=== PATIENT | female | born 1955 | race Caucasian/White ===

== ENCOUNTER 2024-11-04 07:41 | Inpatient (IN) | payer MEDICARE, SELFPAY ==
[2024-11-04] VITALS (9 sets, daily range): BP systolic 95–127; BP diastolic 65–92; PULSE 69–105; RESP 14–20; TEMP 36.6–37.4; O2SAT 94–98; BMI 14.3; BMI 14.6; BMI 14.7
--- NOTE | 2024-11-04 08:12 | CRLHL7_ITS ---
For Patients: As a result of the 21st Century Cures Act, medical imaging exams and procedure reports are released immediately into your electronic medical record. You may view this report before your referring provider. If you have questions, please contact your health care provider. INDICATION: ABD PAIN, HX SBO. (Sic) No additional clinical history is given. COMPARISON: None available. TECHNIQUE: CT of the abdomen and pelvis with 43 cc of Isovue 370 intravenous contrast. Please note that all CT scans at this facility use dose modulation, iterative reconstruction, and/or weight-based dosing when appropriate to reduce radiation dose to as low as reasonably achievable. FINDINGS: ABDOMEN Liver: Normal contour and attenuation. No significant focal lesion. Two small to characterize low-attenuation finding in the anterior aspect of the superior right hepatic lobe (2; 12) statistically likely to represent a cyst for which no routine imaging surveillance as indicated in the absence of an established history of malignancy and without significant underlying liver disease. No intrahepatic biliary ductal dilatation. Patent portal veins. Patent hepatic veins. Gallbladder: Nonspecific gallbladder distention which could be due to a fasting state. No pericholecystic inflammatory changes. Normal common duct caliber. Pancreas: Normal contour and attenuation. No peripancreatic inflammatory changes. No significant focal lesion. Normal main duct caliber. Spleen: Not enlarged. No significant focal lesion. Patent splenic artery and vein. Adrenal Glands: Symmetrical adrenal glands. No significant focal lesion. Kidneys: Normal bilateral renal attenuation. No significant focal lesion. No nephrolith. No dilatation of the intrarenal collecting systems. No ureteral stone. Nondilated ureters. Patent renal arteries and veins. Gastrointestinal tract: Long segment severe dilatation of the small bowel with a transition point in the central abdomen suspicious for an internal hernia (2; 65). Surgical consultation is recommended. The gastrointestinal tract upstream from the dilated bowel is decompressed as is the colon. No associated intramural hemorrhage, wall thickening, mural hypoenhancement or hyperenhancement or pneumatosis intestinalis to indicate ischemia at this time. The appendix is not identified. Vascular: Chronic aortoiliac atherosclerotic mural calcification. Abdominal aorta and its major proximal branches including the celiac, superior mesenteric, inferior mesenteric, renal, and bilateral common iliac arteries are patent. Patent superior mesenteric vein. Peritoneal Cavity/Retroperitoneum: No ascites. No adenopathy. PELVIS No bladder lesion is identified. Hysterectomy. No significant ascites. No adenopathy. SKELETON AND BODY WALL No acute or significant incidental findings. LOWER THORAX Noncalcified lateral costophrenic angle left lower lobe solid nodule measuring 7 mm in mean diameter (series 3; image 30). Six-month follow-up chest CT is recommended per Fleischner society guidelines. Advanced emphysema. Increased lung volumes are consistent with chronic obstructive airways disease in the correct clinical setting. Incidental note is made of apparent focal thickening of the right posteromedial hemidiaphragm (series 2; image 20 and 5; 97). Differential diagnostic considerations include a small diaphragmatic eventration and noncalcified pleural plaque. This can be reassessed at the time of the recommended follow-up chest CT. IMPRESSION: 1. Long segment severe dilatation of the small bowel with a transition point in the central abdomen suspicious for an internal hernia (2; 65). Surgical consultation is recommended. The gastrointestinal tract upstream from the dilated bowel is decompressed, as is the colon. No associated intramural hemorrhage, wall thickening, mural hypoenhancement or hyperenhancement or pneumatosis intestinalis of the dilated small bowel to indicate ischemia at this time. Close clinical follow-up is recommended in this regard. 2. A follow-up chest CT is otherwise recommended in 6 months for an incidental 7 mm left lower lobe nodule per Fleischner society guidelines. 3. Nonspecific gallbladder distention which could be due to a fasting state in this patient with a small-bowel obstruction. No gallbladder wall thickening or pericholecystic inflammatory changes to indicate acute cholecystitis. Please note that all CT scans at this facility use dose modulation, iterative reconstruction, and/or weight-based dosing when appropriate to reduce radiation dose to as low as reasonably achievable. Dictated by Tre Engle MD @ 11/04/2024 9:42:56 AM (Electronically Signed)
--- NOTE | 2024-11-04 08:18 | ED.GENADULT ---
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 She has had a history of bowel obstruction. She has been told in the past when she has had about 6 of these and is hospitalized that she has not required surgery, they think it is from scar tissue from an abdominal hysterectomy that was remote. With her degree of COPD there been has not do surgery and also fear more scar tissue formation. She typically has bowel rest for 24-48 hours and gets better. She has noticed no bowel movement as mention she has been distended in her abdomen it has been mildly tender diffusely. She does not have fever chills rigors. Has not had shortness of breath or chest pain. She typically runs a lowish blood pressure that is normal for her by her report. She does take antihypertensive medications. She also reports she takes anxiety medications. She reports last eating about 3 days ago. She reports no other abdominal surgery. I have no records at this point will attempt to obtain them from [facility]. Addendum 8:38 a.m.: The patient has a past medical history of hypertension elevated coronary artery score, age-related osteoporosis, emphysema due to alpha-1 antitrypsin deficiency, tremor, depression with anxiety, nicotine dependence, major depressive disorder, COPD. The patient's medications have been listed as albuterol, alendronate, aspirin, fluoxetine, fluconazole to make Homer in EM vilanterol inhaler ibuprofen Xalatan Prinivil primidone rosuvastatin. Related Data Home Medications ?Medication ?Instructions ?Recorded ?Confirmed albuterol sulfate 90 mcg/actuation 2 puff inhalation Q4H PRN wheezing 11/04/24 11/04/24 aerosol inhaler alendronate 70 mg tablet 70 mg PO QWEEK 11/04/24 11/04/24 fluoxetine 10 mg capsule 10 mg PO DAILY 11/04/24 11/04/24 fluticasone fur. 100 mcg-umeclid 1 ea inhalation DAILY 11/04/24 11/04/24 62.5 mcg-vilant 25 mcg inhalat.powder (Trelegy Ellipta) latanoprost 0.005 % eye drops 1 drp ophthalmic (eye) HS 11/04/24 11/04/24 lisinopril 10 mg tablet 10 mg PO DAILY 11/04/24 11/04/24 rosuvastatin 10 mg tablet 10 mg PO QPM 11/04/24 11/04/24 Allergies Allergy/AdvReac Type Severity Reaction Status Date / Time No Known Drug Allergies Allergy Verified 11/04/24 08:12 Review of Systems Status of ROS: Reports: 6 or more systems reviewed and unremarkable except as noted in History and below [facility] Medical History Pulmonary cachexia due to COPD ?R64 - Cachexia (ICD-10) ?J44.9 - Chronic obstructive pulmonary disease, unspecified (ICD-10) Alpha 1-antitrypsin PiMS phenotype ?Z14.8 - Genetic carrier of other disease (ICD-10) Former heavy tobacco smoker ?Z87.891 - Personal history of nicotine dependence (ICD-10) Stage 4 very severe COPD by GOLD classification ?J44.9 - Chronic obstructive pulmonary disease, unspecified (ICD-10) CAD (coronary artery disease) ?I25.10 - Atherosclerotic heart disease of [place] coronary artery without angina pectoris (ICD-10) Depression ?F32.A - Depression, unspecified (ICD-10) Osteoporosis ?M81.0 - Age-related osteoporosis without current pathological fracture (ICD-10) Hyperlipidemia ?E78.5 - Hyperlipidemia, unspecified (ICD-10) Sarcopenia ?M62.84 - Sarcopenia (ICD-10) Surgical History S/P BOWEN-BSO ?Z90.710 - Acquired absence of both cervix and uterus (ICD-10) ?Z90.722 - Acquired absence of ovaries, bilateral (ICD-10) ?Z90.79 - Acquired absence of other genital organ(s) (ICD-10) History of back surgery ?Z98.890 - Other specified postprocedural states (ICD-10) H/O cone biopsy of cervix ?Z98.890 - Other specified postprocedural states (ICD-10) Social History What is your current living situation?: I presently have a place to live Problems where you live: mold and water leaks Problems where you live details: my son needs to get working on some things In the past 12 months, utilities in danger of being shut off: no In past 12 months, lack of transportation kept you from medical appts, meetings, work, or getting things needed for daily living: no In the past 12 mos, have been you worried that your food would run out before you had money to buy more?: never true In the past 12 mos, the food you bought just didn't last and you didn't have money to buy more?: never true Highest level of school completed/degree received: Associate degree: occupational, technical, vocational program Smoking Status: Former smoker Do you use any of these nicotine containing products: None How often do you have a drink containing alcohol: never AUDIT-C Alcohol total score: 0 Non-prescribed substance use: denies use Caffeine: Yes (4 cups a day) How often does anyone, including family, friends and others, physically hurt you: never How often does anyone, including family, friends and others, insult or talk down to you: never How often does anyone, including family, friends and others, threaten you with harm: never How often does anyone, including family, friends and others, scream or curse at you: never service: No Health Related Social Needs: Inadequate housing (Z59.1) Exam Narrative: Exam Narrative: Objective: Patient is a cachectic white female who has no scleral icterus, no facial asymmetry Vital signs look unremarkable Alert orient x3 pleasant No facial asymmetry, neck supple, heart rhythm regular 2/6 systolic murmur Lungs diminished air exchange Abdomen has a midline surgical scar, mildly distended, mildly diffusely tender but no peritonitis. Bowel sounds are slightly hyperactive. Extremities are no edema neurologic nonfocal. Patient has significant muscular atrophy in his very thin. Const: Vital Signs, click to edit/add: Vital Signs - 24 hr 11/04/24 08:06 11/04/24 10:30 11/04/24 11:00 Temperature 97.9 F Pulse Rate [Left P ulse Oximeter] 105 H 89 88 Pulse Rate [Left R adial] Respiratory Rate 18 18 18 Blood Pressure [Le ft Arm] Blood Pressure [Ri ght Upper Arm] 95/65 109/92 H 118/73 Pulse Oximetry 97 94 96 Oxygen Delivery Me thod Room Air Room Air Room Air 11/04/24 11:19 Temperature 98.9 F Pulse Rate [Left P ulse Oximeter] Pulse Rate [Left R adial] 90 Respiratory Rate 20 Blood Pressure [Le ft Arm] 127/85 Blood Pressure [Ri ght Upper Arm] Pulse Oximetry 98 Oxygen Delivery Me thod Room Air Course Vital Signs Vital signs: Initial Vital Signs Temperature 97.9 F 11/04/24 08:06 Temperature Source Temporal Artery Scan 11/04/24 08:06 Pulse Rate 105 H 11/04/24 08:06 Respiratory Rate 18 11/04/24 08:06 Blood Pressure 95/65 11/04/24 08:06 Blood Pressure Mean 75 11/04/24 08:06 Blood Pressure Position Sitting 11/04/24 08:06 Pulse Oximetry 97 11/04/24 08:06 Oxygen Delivery Method Room Air 11/04/24 08:06 Vital Signs Temperature 97.9 F 11/04/24 08:06 Pulse Rate 105 H 11/04/24 08:06 Respiratory Rate 18 11/04/24 08:06 Blood Pressure 95/65 11/04/24 08:06 Pulse Oximetry 97 11/04/24 08:06 Oxygen Delivery Method Room Air 11/04/24 08:06 Temperature 99 F 11/04/24 14:36 Pulse Rate 69 11/04/24 14:53 Respiratory Rate 16 11/04/24 14:36 Blood Pressure 111/68 11/04/24 14:36 Pulse Oximetry 96 11/04/24 14:36 Oxygen Delivery Method Room Air 11/04/24 14:36 Medications Administered Medications: Discontinued Medications Generic Name Dose Route Start Last Admin Trade Name Freq PRN Reason Stop Dose Admin Sodium Chloride 1,000 mls @ 6,000 mls/hr 11/04/24 08:15 11/04/24 09:30 0.9 % Sodium Chloride 1000 Ml IV 11/04/24 08:24 Infused .Q10M JAVIER Infusion Lactated Ringer's 1,000 mls @ 500 mls/hr 11/04/24 11:51 11/04/24 15:30 Lactated Ringers 1000 Ml IV 11/04/24 13:50 Infused .Q2H JAVIER Infusion Lactated Ringer's 1,000 mls @ 75 mls/hr 11/04/24 11:51 11/04/24 14:41 Lactated Ringers 1000 Ml IV 75 mls/hr .[id number] JAVIER Administration Morphine Sulfate 2 mg 11/04/24 08:12 11/04/24 08:33 Morphine 4 Mg/Ml Inj IVP 11/04/24 08:13 2 mg ONCE ONE Administration Morphine Sulfate 2 mg 11/04/24 11:51 11/04/24 15:41 Morphine 2 Mg/Ml Inj IVP 2 mg Q1H PRN Administration Pantoprazole Sodium 40 mg 11/04/24 11:51 11/04/24 12:40 Pantoprazole Sodium 40 Mg Inj IVP 11/04/24 11:52 40 mg ONCE ONE Administration Medical Decision Making MDM Narrative Medical decision making narrative: [age] year white female with significant COPD, anxiety, and hypertension history, new to our system, presents with a history of small-bowel obstruction and history of multiple hospitalizations for bowel obstruction. She denies history of any narcotic use at home. She has not had issues with that in the past. She does have a distended abdomen mildly tender. I think a CT scan with IV contrast would be appropriate as well as laboratory studies, IV fluid, IV pain medicine. Disposition pending her findings. Likely admission NPO status. Will attempt to get some old records. May need surgical consult as well. Differential would include intra-abdominal pathology such as diverticulitis, constipation, small-bowel obstruction, ileus. Addendum 10:12 a.m.: The patient has a long segment of small bowel obstruction with possible internal hernia. Dr. Gunn evaluated the patient's CT, and felt that operative interventions indicated given she has already had a trial of NPO for 3 days. She last reports she ate at least a day ago. She does have significant COPD. Her labs show an elevated CRP. She will be kept NPO. And surgical consult as well as probable operative intervention. Lab Data Labs: Lab Results 11/04/24 11/04/24 Range/Units 08:25 09:25 WBC 5.68 (4.50-11.00) K/uL RBC 4.67 (4.00-5.20) m/uL Hgb 14.6 (12.0-16.0) gm/dL Hct 44.9 (33.0-51.0) % MCV 96 (80-100) fL MCH 31 (26-34) pg MCHC 33 (32-36) gm/dL RDW Coeff of Sheeba 12.8 (11.5-15.5) % Plt Count 264 (140-440) K/uL Neut % (Auto) 74.9 H (42.0-72.0) % Lymph % (Auto) 11.6 L (20-44) % [place] % (Auto) 12.1 H (0.0-11.0) % Eos % (Auto) 0.2 (0.0-7.0) % Baso % (Auto) 0.5 (0.0-3.0) % Neut # (Auto) 4.30 (1.7-7.0) K/uL Lymph # (Auto) 0.70 L (0.90-2.90) K/uL [place] # (Auto) 0.70 (0.00-0.90) K/UL Eos # (Auto) 0.01 (0.00-0.50) K/uL Baso # (Auto) 0.03 (0.00-0.30) K/uL Abs Immat Gran (auto) 0.04 (0.00-0.30) K/uL Imm/Tot Granulo (auto) 0.7 % Sodium 131 L (135-149) mmol/L Potassium 4.4 (3.6-5.1) mmol/L Chloride 95 L (96-114) mmol/L Carbon Dioxide 25 (20-32) mmol/L Anion Gap 11 (7-15) mEq/L BUN 36 H (7-30) mg/dL Creatinine 1.1 (0.5-1.5) mg/dL Estimated Creat Clear 29.72 Estimated GFR 54 ml/min Glucose 115 (60-115) mg/dL Lactate 2.2 H (0.5-1.9) mmol/L Calcium 9.7 (8.4-10.6) mg/dL Total Bilirubin 0.7 (0.1-1.5) mg/dL Direct Bilirubin 0.2 (0.0-0.5) mg/dL AST 34 (12-35) U/L ALT 20 (4-35) U/L Alkaline Phosphatase 96 (40-150) U/L C-Reactive Protein 4.4 H (0.5-1.0) mg/dL NT-Pro-B Natriuret Pep 451 H (See Note) pg/mL Total Protein 7.5 (6.0-8.3) g/dL Albumin 4.5 (3.3-5.0) g/dL Amylase 59 (18-89) U/L Urine Color Yellow (Yellow) Urine Appearance Clear (Clear) Urine pH 6.5 (5.0-8.5) Ur Specific [place] 1.015 (1.000-1.030) Urine Protein 1+ A (Negative) Urine Glucose (UA) Negative (Negative) Urine Ketones 1+ A (Negative) Urine Blood Negative (Negative) Urine Nitrite Negative (Negative) Urine Bilirubin 1+ A (Negative) Urine Urobilinogen 0.2 (0.2-1.0) Ur Leukocyte Esterase Negative (Negative) Urine RBC 0-2 (0-2) Urine WBC 0-2 (0-5) Ur Squamous Epith Cells Few (None-Few) Other Sediment (None) Urine Bacteria None (None) Discharge Plan Discharge Clinical Impression: Abdominal pain, Complete obstruction of small intestine Patient Disposition: Admitted As Observation
[2024-11-04 08:30] LABS: Lactate* 2.2 mmol/L (0.5-1.9)
[2024-11-04] MEDS: MORPHINE 4 MG/ML INJ 2 MG IVP (08:33)
[2024-11-04 08:38] LABS: Hematocrit 44.9 % (33.0-51.0); Hemoglobin* 14.6 gm/dL (12.0-16.0); Immature Granulocytes Abs Auto 0.04 K/uL (0.00-0.30); Immature Granulocytes Pct Auto 0.7 %; Mean Corpuscular HGB Conc 33 gm/dL (32-36); Mean Corpuscular Hemoglobin 31 pg (26-34); Mean Corpuscular Volume 96 fL (80-100); RDW Coefficient of Variation % 12.8 % (11.5-15.5); Red Blood Count 4.67 m/uL (4.00-5.20); White Blood Count* 5.68 K/uL (4.50-11.00)
[2024-11-04 08:39] LABS: Lymphocytes Absolute Auto 0.70 K/uL (0.90-2.90); Slide Review Reflex No
--- OUTSIDE RECORDS SUMMARY | 2024-11-04 08:39 | XMS_ITS | Clinical Summary ---
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 12/02/2023 Active alendronate (FOSAMAX) 70 mg oral tablet Take 1 tablet (70 mg) by mouth every 7 (seven) days. 08/29/2023 Active FLUoxetine (PROZAC) 10 mg oral capsule Take 1 capsule (10 mg) by mouth Daily. 11/30/2023 Active TRELEGY ELLIPTA 100-62.5-25 mcg Inhl DsDv INHALE 1 PUFF BY MOUTH AT THE SAME TIME EVERY DAY Active lisinopriL (PRINIVIL) 10 mg oral tablet Take 1 tablet (10 mg) by mouth Daily. 08/29/2023 Active ibuprofen (ADVIL;MOTRIN) 200 mg oral tablet Take 1 tablet (200 mg) by mouth. Active latanoprost 0.005% (XALATAN) 0.005 % Opht Drop ophthalmic (EYE) solution INSTILL 1 DROP INTO BOTH EYES DAILY AT BEDTIME FOR 6 MONTHS 07/19/2024 Active primidone (MYSOLINE) 50 mg oral tabletIndicatio ns:Essential tremor Take 1 tab qhs for 7 days, then take 1 tab bid. 180 tablet 1 08/22/2024 Active Active Problems Problem Noted Date Diagnosed Date Tremors of nervous system 07/14/2016 Essential hypertension 06/02/2011 Essential tremor 02/06/2010 COPD (chronic obstructive pulmonary disease) 01/2010 Depression with anxiety 11/18/2009 Encounters Date Type Department Care Team Description 08/22/2024 10:30 AM CDT Office Visit [facility] - [address] [place] [address] Remy Kolb PA-C Essential tremor from Last 3 Months Immunizations Immunization Administration Dates Next Due Influenza Adjuvanted (Fluad Quadrivalent PF) 03/14/2023,04/06/2022,02/10/2021,2019 Influenza Adjuvanted (Fluad Trivalent PF) 02/23/2024 Influenza split virus (Fluzo ne Quadrivalent PF) 01/23/2019,01/20/2018,05/25/2017,2015,03/07/2015,02/28/2014 Influenza split virus (Fluzo ne Trivalent PF) 03/01/2011 Influenza split virus trivalent 02/29/20 13,02/08/2012,02/23/2010,2005,03/30/2005,02/10/2004,02/02/2002,1 05/07/2000,02/25/2000,02/19/1999, 998 Pfizer 12+ Yrs Bivalent COVI D Vaccine (monique cap) 04/12/2022 Pfizer 12+ Yrs Monovalent CO VID Vaccine (purple cap) 07/30/2020,07/09/2020 Pneumococcal PCV20 03/14/2023 Pneumococcal PPSV23 01/14/2020,02/10/2004 Td adult absorbed PF (2 Lf) 11/13/1997 Tdap 09/14/2017,08/28/2007 Social History Tobacco Use Types Packs/Day Years Used Date Smoking Tobacco: Former Cigarettes Smokeless Tobacco: Never Tobacco Cessation:Counseling Given: No Alcohol Use Standard Drinks/Week Comments Not Currently 0 (1 standard drink = 0.6 oz pur e alcohol) Comments Unknown Sex and Gender Information Value Date Recorded Sex Assigned at Not on file Legal Sex Female 7:09 PM CDT Gender Identity Not on file Sexual Orientation Not on file Last Filed Vital Signs Vital Sign Reading Time Taken Comments Blood Pressure - - Pulse - - Temperature - - Respiratory Rate 14 08/22/2024 11:05 AM CDT Oxygen Saturation - - Inhaled Oxygen Concentration - - Weight 38.6 kg (85 lb) 08/22/2024 11:05 AM CDT Height 165.1 cm (5' 5) 08/22/2024 11:05 AM CDT Body Mass Index 14.14 08/22/2024 11:05 AM CDT Plan of Treatment Health Maintenance Due Date Last Done Comments Colonoscopy 1955 Hepatitis C Screening 1955 Lipid Screening 1955 Depression Follow-Up (PHQ-9) 11/25/1955 Spirometry 05/27/1959 Yearly Review of HCD 2004 Zoster Vaccine (1 of 2) 2004 RSV Vaccines (1 - Risk 60-74 years 1-dose series) 2014 COVID-19 Vaccine ( season) 2023 04/12/2022, 07/30/2020, 07/09/2020 Osteoporosis Screening 11/15/2024 3, 02/13/2020, 08/11/2016, Additional history exists Medicare Wellness Visit 12/06/2024 12/07/19 24, 04/06/2022, 02/10/2021, Additional history exists Influenza Vaccine (#1) 2024 4, 03/14/2023, 04/06/2022, Additional history exists Mammogram Screening 08/25/2025 08/26/2023, 08/26/2023, 06/01/2022, Additional history exists Adult Tetanus Booster 09/15/2027 09/14/2017 , 08/28/2007, 11/13/1997 Pneumococcal 50+ Years Completed 3, 01/14/2020, 02/10/2004 Meningococcal B Vaccine Aged Out No l onger eligible based on patient's age to complete this topic Insurance [email or web address] Care Teams Core Laying Machine Operator Relationship Specialty [place] [address] [place] [address] PCP - General Family Medicine 02/29/24 Remy Kolb PA-C [address] [place] [address] Neurology 02/29/24
--- OUTSIDE RECORDS SUMMARY | 2024-11-04 08:39 | XMS_ITS | Clinical Summary ---
Author Organization [facility] Address [address] [place] [id number] Care Team Providers Care Heel Turner Name Role Phone Maral Alberto PA-C Primary Care Provider Allergies No known active allergies Medications FLUoxetine (PROZAC) 10 MG capsule Take 10 mg by mouth daily Active albuterol (PROAIR HFA/PROVENTIL HFA/VENTOLIN HFA) 108 (90 Base) MCG/ACT inhaler Inhale 2 puffs into the lungs every morning Active albuterol (PROAIR HFA/PROVENTIL HFA/VENTOLIN HFA) 108 (90 Base) MCG/ACT inhaler Inhale 2 puffs into the lungs daily as needed for shortness of breath Active Fluticasone-Umecl idin-Vilant (TRELEGY ELLIPTA) 100-62.5-25 MCG/ACT oral inhaler Inhale 1 puff into the lungs daily Active alendronate (FOSAMAX) 70 MG tablet Take 70 mg by mouth every 7 days Active multivitamin, therapeutic (THERA-VIT) TABS tablet Take 1 tablet by mouth at bedtime Active ibuprofen (ADVIL/MOTRIN) 200 MG tablet Take 200 mg by mouth daily as needed for pain Active azithromycin (ZITHROMAX) 250 MG tablet Take by mouth as needed Take when needed Active lisinopril (ZESTRIL) 10 MG tabletIndications :Primary hypertension Take 1 tablet (10 mg) by mouth daily 4 Active budesonide-formot alondra (SYMBICORT) 160-4.5 MCG/ACT InhalerIndication s:COPD exacerbation (H) Inhale 2 puffs into the lungs daily 4 Active predniSONE (DELTASONE) 20 MG tablet Take two tablets (= 40mg) each day for 5 (five) days 10 tablet 5 Active Active Problems Problem Noted Date Diagnosed Date Centrilobular emphysema 11/23/2023 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 11/23/2023 Essential hypertension 11/23/2023 Lung nodule 08/28/2020 Hypoxia 08/28/2020 COPD exacerbation 08/28/2020 SBO (small bowel obstruction) 10/20/2016 Small bowel obstruction 07/27/2015 Encounters Date Type Department Care Team Description 08/29/2024 12:56 PM CDT - 08/29/2024 4:23 PM CDT Emergency [facility] Emergency Dept [address] [place] [address] Leatha Jon MD Pleuritic chest pain; Dyspnea on exertion; Chronic obstructive pulmonary disease, unspecified COPD type (H); Pulmonary nodules Discharge Disposition: Home or Self Care 08/29/2024 Travel from Last 3 Months Social History Tobacco Use Types Packs/Day Years Used Date Smoking Tobacco: Every Day Cigarettes Adolescent Education Answer Date Record ed Getting School Help Needed Not on file 01/16 Comments No Sex and Gender Information Value Date Recorded Sex Assigned at Not on file Legal 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 Gender Identity Not on file Sexual Orientation Not on file Last Filed Vital Signs Vital Sign Reading Time Taken Comments Blood Pressure 113/82 08/29/2024 4:18 PM CDT Pulse 91 08/29/2024 4:18 PM CDT Temperature 37.1 C (98.7 F) 08/29/2024 4:18 PM CDT Respiratory Rate 16 08/29/2024 12:53 PM CDT Oxygen Saturation 97% 08/29/2024 4:18 PM CDT Inhaled Oxygen Concentration - - Weight 38.6 kg (85 lb) 08/29/2024 12:53 PM CDT Height 162.6 cm (5' 4) 08/29/2024 12:53 PM CDT Body Mass Index 14.59 08/29/2024 12:53 PM CDT Plan of Treatment Health Maintenance Due Date Last Done Comments ADVANCE CARE PLANNING 1955 ANNUAL REVIEW OF HM ORDERS 1955 COPD ACTION PLAN [address] COLONOGRAPHY 1955 FLEX SIG 1955 sDNA (Cologuard) 1955 HEPATITIS C SCREENING 1972 LIPID 1994 ZOSTER VACCINE (1 of 2) 2004 FIT 01/16/2009 01/17/2008 RSV VACCINE (1 - Risk 60-74 years 1-dose series) 2014 FALL RISK ASSESSMENT 11/25/2019 COLONOSCOPY 10/06/2023 10/05/2013, 12/01/2007 COLORECTAL CANCER SCREENING 10/06/2023 COVID-19 VACCINE ( season) 2023 07/30/2020 PHQ-2 (once per calendar year) 2024 MEDICARE ANNUAL WELLNESS VISIT 12/06/2024 12/07/2023, 08/29/2023, 04/06/2022, Additional history exists INFLUENZA VACCINE (#1) 2024 , 03/14/2023, 04/06/2022, Additional history exists MAMMO SCREENING 08/25/2025 08/26/2023, 08/09, 02/13/2020, Additional history exists BMP 08/29/2025 08/29/2024, 11/09, 11/20/2023, Additional history exists LUNG CANCER SCREENING 08/29/2025 08/29/2024 DIABETES SCREENING 08/30/2027 08/29/2024, 0 11/21/2023, 11/21/2023, Additional history exists DTAP/TDAP/TD VACCINE (3 - Td or Tdap) 09/15/2027 09/14/2017, 08/28/2007, 11/13/1997 DEXA 11/15/2037 11/15/2022 PNEUMOCOCCAL VACCINE 50+ YEARS Completed 03/14/2023, 01/14/2020, 02/10/2004 SPIROMETRY Completed 12/02/2023, 04/13, 05/10/2019 HPV VACCINE (No Doses Required) Completed MENINGITIS VACCINE Aged Out No longer eligible based on patient's age to complete this topic Procedures Procedure Name Priority Date/Time Associated Diagnosis Comments CT CHEST PULMONARY EMBOLISM W CONTRAST STAT 08/29/2024 3:07 PM CDT EKG 12-LEAD, TRACING ONLY STAT 08/29/2024 2:29 PM CDT CBC WITH PLATELETS & DIFFERENTIAL STAT 08/29/2024 1:19 PM CDT CBC WITH PLATELETS AND DIFFERENTIAL STAT 08/29/2024 1:19 PM CDT D DIMER QUANTITATIVE STAT 08/29/2024 1:19 PM CDT TROPONIN T, HIGH SENSITIVITY STAT 08/29/2024 1:19 PM CDT BASIC METABOLIC PANEL STAT 08/29/2024 1:19 PM CDT PULMONARY FUNCTION TEST - HIM SCAN 05/10/2019 12:[address]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 No pulmonary embolism. 2. Severe emphysema. 3. Unchanged probable scarring in the upper lobes posteriorly, as well as subcentimeter nodules bilaterally. Narrative 08/29/2024 3:21 PM CDT EXAM: CT CHEST PULMONARY EMBOLISM W CONTRAST LOCATION: [facility] DATE: 08/29/2024 INDICATION: chest pain, dyspnea COMPARISON: 08/01/2024 TECHNIQUE: CT chest pulmonary angiogram during arterial phase injection of IV contrast. Multiplanar reformats and MIP reconstructions were performed. Dose reduction techniques were used. CONTRAST: 41mL Isovue 370 FINDINGS: ANGIOGRAM CHEST: Pulmonary arteries are normal caliber and negative for pulmonary emboli. Thoracic aorta is negative for dissection. No CT evidence of right heart strain. LUNGS AND PLEURA: Severe upper lung predominant centrilobular emphysema with unchanged probable scarring in the upper lobes posteriorly. A few nodular opacities are also unchanged (e.g. ). No pleural effusion or pneumothorax. MEDIASTINUM/AXILLAE: Normal. CORONARY ARTERY CALCIFICATION: Mild. UPPER ABDOMEN: Normal. MUSCULOSKELETAL: Degenerative changes in the spine. Procedure Note Hakeem Alvarez MD - 08/29/2024 EXAM: CT CHEST PULMONARY EMBOLISM W CONTRAST LOCATION: [facility] DATE: 08/29/2024 INDICATION: chest pain, dyspnea COMPARISON: 08/01/2024 TECHNIQUE: CT chest pulmonary angiogram during arterial phase injection ofIV contrast. Multiplanar reformats and MIP reconstructions were performed.Dose reduction techniques were used. CONTRAST: 41mL Isovue 370 FINDINGS: ANGIOGRAM CHEST: Pulmonary arteries are normal caliber and negative forpulmonary emboli. Thoracic aorta is negative for dissection. No CTevidence of right heart strain. LUNGS AND PLEURA: Severe upper lung predominant centrilobular emphysemawith unchanged probable scarring in the upper lobes posteriorly. A fewnodular opacities are also unchanged (e.g. ). No pleural effusion orpneumothorax. MEDIASTINUM/AXILLAE: Normal. CORONARY ARTERY CALCIFICATION: Mild. UPPER ABDOMEN: Normal. MUSCULOSKELETAL: Degenerative changes in the spine. IMPRESSION: 1. No pulmonary embolism. 2. Severe emphysema. 3. Unchanged probable scarring in the upper lobes posteriorly, as well assubcentimeter nodules bilaterally. us Leatha Jon MD IMG CT ORDERABLES Final Result * EKG 12 lead (08/29/2024 2:29 PM CDT) Systolic Blood Pressure mmHg RADIOLOGY RESULTS Diastolic Blood Pressure mmHg RADIOLOGY RESULTS Ventricular Rate 105 BPM RAD IOLOGY RESULTS Atrial Rate 105 BPM RADIOLOG Y RESULTS IN Interval 126 ms RADIOLOG Y RESULTS QRS Duration 76 ms RADIOLO GY RESULTS QT 330 ms RADIOLOGY RESULTS QTc 436 ms RADIOLOGY RESULTS P [place] 90 degrees RADIOLOGY RESULTS R AXIS 88 degrees RADIOLOGY RESULTS T [place] 86 degrees RADIOLOGY RESULTS Interpretation ECG Sinus tachycardia Otherwise normal ECG When compared with ECG of 28-Aug-2020 17:45, No significant change was found Unconfirmed report - interpretation of this ECG is computer generated - see medical record for final interpretation Confirmed by - EMERGENCY ROOM, PHYSICIAN ([id number]), senior technical editor Ace Dudley ([id number]) on 08/29/2024 2:43:41 PM RADIOLOGY RESULTS 08/29/2024 2:29 PM CDT 08/29/2024 2:43 PM CDT us Leatha Jon MD ECG ORDERABLES Edited R esult - Final RADIOLOGY RESULTS * (ABNORMAL) CBC with platelets and differential (08/29/2024 1:19 PM CDT) WBC Count 12.0(H) 4.0 - 11.0 10e3/uL 08/29/2024 1:30 PM CDT [facility] RBC Count 4.35 3.80 - 5.20 10e6/uL 08/29/2024 1:30 PM CDT [facility] Hemoglobin 13.9 11.7 - 15.7 g/dL 08/29/2024 1:30 PM CDT [facility] Hematocrit 41.8 35.0 - 47.0 % 08/29/2024 1:30 PM CDT [facility] MCV 96 78 - 100 fL 08/29/2024 1:30 PM CDT [facility] MCH 32.0 26.5 - 33.0 pg 08/29/2024 1:30 PM CDT [facility] MCHC 33.3 31.5 - 36.5 g/dL 08/29/2024 1:30 PM CDT [facility] RDW 12.9 10.0 - 15.0 % 08/29/2024 1:30 PM CDT [facility] Platelet Count 256 150 - 450 10e3/uL 08/29/2024 1:30 PM CDT [facility] % Neutrophils 80 % 08/29/2024 1:30 PM CDT [facility] % Lymphocytes 10 % 08/29/2024 1:30 PM CDT [facility] % Monocytes 7 % 08/29/2024 1:30 PM CDT [facility] % Eosinophils 1 % 08/29/2024 1:30 PM CDT [facility] % Basophils 1 % 08/29/2024 1:30 PM CDT [facility] % Immature Granulocytes 1 % 08/29/2024 1:30 PM CDT [facility] NRBCs per 100 WBC 0 <1 /100 025 1:30 PM CDT [facility] Absolute Neutrophils 9.6(H) 1.6 - 8.3 10e3/uL 08/29/2024 1:30 PM CDT [facility] Absolute Lymphocytes 1.2 0.8 - 5.3 10e3/uL 08/29/2024 1:30 PM CDT [facility] Absolute Monocytes 0.9 0.0 - 1.3 10e3/uL 08/29/2024 1:30 PM CDT [facility] Absolute Eosinophils 0.2 0.0 - 0.7 10e3/uL 08/29/2024 1:30 PM CDT [facility] Absolute Basophils 0.1 0.0 - 0.2 10e3/uL 08/29/2024 1:30 PM CDT [facility] Absolute Immature Granulocytes 0.1 <=0.4 10e3/uL 08/29/2024 1:30 PM CDT [facility] Absolute NRBCs 0.0 10e3/uL 08/29/2024 1:30 PM CDT [facility] Blood STRUCTURE OF RIGHT UPPER LIMB / Unknown Venipuncture / Unknown 08/29/2024 1:19 PM CDT 08/29/2024 1:28 PM CDT us Leatha Jon MD LAB - BLOOD ORDERABLES F inal Result [facility] [address] [facility] Lab (1st floor, no room number) [place] [address], [facility] * Troponin T, High Sensitivity (08/29/2024 1:19 PM CDT) [facility] Troponin T, High Sensitivity <6 <=14 ng/L 08/29/2024 1:52 PM CDT [facility] Comment: Either a High Sensitivity Troponin T baseline (0 hours) value = 100 ng/L, or an increase in High Sensitivity Troponin T = 7 ng/L at 2 hours compared to 0 hours (2-0 hours), suggests myocardial injury, and urgent clinical attention is required. If the 2-0 hours increase is <7 ng/L, a High Sensitivity Troponin T result above gender-specific reference ranges warrants further evaluation. Recommendations for further evaluation include correlation with clinical decision-making tool (e.g., HEART), a 3rd High Sensitivity Troponin T test 2 hours after the 2nd (a 20% change from baseline would represent concern), admission for observation, close PCC/cardiology follow-up, or urgent outpatient provocative testing. Blood STRUCTURE OF RIGHT UPPER LIMB / Unknown Venipuncture / Unknown 08/29/2024 1:19 PM CDT 08/29/2024 1:28 PM CDT us Leatha Jon MD LAB - BLOOD ORDERABLES F inal Result [facility] [address] [facility] Lab (1st floor, no room number) [place] [address], [facility] * (ABNORMAL) D dimer quantitative (08/29/2024 1:19 PM CDT) [facility] D-Dimer Quantitative 1.30(H) 0.00 - 0.50 ug/mL FEU 08/29/2024 1:52 PM CDT [facility] Blood STRUCTURE OF RIGHT UPPER LIMB / Unknown Venipuncture / Unknown 08/29/2024 1:19 PM CDT 08/29/2024 1:28 PM CDT Narrative [facility] - 08/29/2024 1:52 PM CDT This D-dimer assay is intended for use in conjunction with a clinical pretest probability assessment model to exclude pulmonary embolism (PE) and deep venous thrombosis (DVT) in outpatients suspected of PE or DVT. The cut-off value is 0.50 ug/mL FEU. For patients 50 years of age or older, the application of age-adjusted cut-off values for D-Dimer may increase the specificity without significant effect on sensitivity. The literature suggested calculation age adjusted cut-off in ug/L = age in years x 10 ug/L. The results in this laboratory are reported as ug/mL rather than ug/L. The calculation for age adjusted cut off in ug/mL= age in years x 0.01 ug/mL. For example, the cut off for a 76 year old male is 75 x 0.01 ug/mL = 0.76 ug/mL (760 ug/L). M Jourdan et al. Age adjusted D-dimer cut-off levels to rule out pulmonary embolism: The ADJUST-PE Study. EDMUND 2014;311:2094-5683.; HJ Rodríguez et al. Diagnostic accuracy of conventional or age adjusted D-dimer cutoff values in older patients with suspected venous thromboembolism. Systemic review and meta-analysis. BMJ 2013:346:f2492. us Leatha Jon MD LAB - BLOOD ORDERABLES F inal Result [facility] [address] [facility] Lab (1st floor, no room number) [place] [address] * Basic metabolic panel (08/29/2024 1:19 PM CDT) Sodium 137 135 - 145 mmol/L 08/29/2024 1:52 PM CDT [facility] Potassium 4.4 3.4 - 5.3 mmol/L 08/29/2024 1:52 PM CDT LABORATORY Chloride 101 98 - 107 mmol/L 08/29/2024 1:52 PM CDT [facility] Carbon Dioxide (CO2) 25 22 - 29 mmol/L 08/29/2024 1:52 PM CDT [facility] Anion Gap 11 7 - 15 mmol/L 08/29/2024 1:52 PM CDT [facility] Urea Nitrogen 15.3 8.0 - 23.0 mg/dL 08/29/2024 1:52 PM CDT [facility] Creatinine 0.80 0.51 - 0.95 mg/dL 08/29/2024 1:52 PM CDT [facility] GFR Estimate 79 >60 mL/min/1.7 3m2 08/29/2024 1:52 PM CDT [facility] Comment:eGFR calculated usin g 2021 CKD-EPI equation. 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) 05/10/2019 us Provider Outside PFT ORDERABLES Final Result * Occult blood stool (01/17/2008 6:15 PM CDT) Occult Blood Negative NEG [facility] 01/17/2008 6:15 PM CDT 01/13/2008 9:25 PM CDT us Tre Cortes MD LAB - STOOLS ORDERABLES Final Result [facility] * COLONOSCOPY (12/01/2007 12:00 PM CDT) COLONOSCOPY Endoscopy Patient Name: Yenifer Chisholm Gender: F Procedure Date: 12/01/2007 12:00 PM Date of : 1955 Age: 52 Admit Type: Outpatient Attending MD: Floyd Finn MD Procedure: Colonoscopy Indications: Average risk screening for malignant neoplasm in the colon Providers: Floyd Finn MD Referring MD: Yenifer Pitt MD Medicines: Fentanyl 100 micrograms IV, Midazolam 2 mg IV, Atropine 0.6 mg IV Complications: No immediate complications Procedure: - Prior to the procedure, a History and Physical was performed, and patient medication allergies were reviewed. The patient is competent. The risks and benefits of the procedure and the sedation options and risks were discussed with the patient. All questions were answered and informed consent was obtained. Patient identification and proposed procedure were verified by the physician in the procedure room. Mental Status Examination: alert and oriented. Airway Examination: normal oropharyngeal airway and neck mobility. Respiratory Examination: clear to auscultation. CV Examination: normal. ASA Grade Assessment: I - A normal, healthy patient. After reviewing the risks and benefits, the patient was deemed in satisfactory condition to undergo the procedure. The anesthesia plan was to use moderate sedation / analgesia (conscious sedation). Immediately prior to administration of medications, the patient was re-assessed for adequacy to receive sedatives. The heart rate, respiratory rate, oxygen saturations, blood pressure, adequacy of pulmonary ventilation, and response to care were monitored throughout the procedure. The physical status of the patient was re-assessed after the procedure. After obtaining informed consent, the colonoscope was passed under direct vision. Throughout the procedure, the patient's blood pressure, pulse, and oxygen saturations were monitored continuously. The [facility]-[id number] was introduced through the anus and advanced to the cecum, identified by appendiceal orifice & IC valve. The colonoscopy was performed without difficulty. The patient tolerated the procedure well. The quality of the prep was good. Findings: The digital rectal exam was normal. The rectum, sigmoid colon, descending colon, splenic flexure, transverse colon, hepatic flexure, ascending colon, cecum and ileocecal valve appeared normal. The retroflexed view of the anal verge was normal and showed no anal or rectal abnormalities. Impression: - The rectum, sigmoid colon, descending colon, splenic flexure, transverse colon, hepatic flexure, ascending colon, cecum and ileocecal valve are normal. Recommendation: - Discharge patient to home (ambulatory). - Collect Hemoccults on three spontaneously passed stools annually. - Flexible Sigmoidoscopy in 3 years. - Return to primary care physician PRN. Kofi Finn M.D Floyd Finn MD Signed Date: 12/01/2007 12:28 PM Number of Addenda: 0 I was physically present for the entire viewing portion of the exam. Note initiated on 12/01/2007 12:00 PM RADIOLOGY RESULTS COLONOSCOPY RADIOLOG Y RESULTS 12/01/2007 12:0 0 PM CDT Yenifer Duranqq CNM PROCEDURES Final Result RADIOLOGY RESULTS from Last 3 Months or Most Recently Relevant to Health Maintenance Insurance [employer] Advance Directives For more information, please contact: [phone] * Full Code (Latest Code Status on File) Date Activated Date Inactivated Comments 11/18/2023 4:06 PM 11/23/2023 6:29 PM All basic and advanced life-sustaining interventions are performed as appropriate Question Answer Comments Code status determined by: Discussion with patie nt/ legal decision maker * Full Code Date Activated Date Inactivated Comments 08/28/2020 11:33 PM 08/30/2020 4:59 PM All basic a nd advanced life-sustaining interventions are performed as appropriate Question Answer Comments Code status determined by: Discussion with patie nt/ legal decision maker * Full Code Date Activated Date Inactivated Comments 10/26/2016 12:59 PM 08/28/2020 5:32 PM * Full Code Date Activated Date Inactivated Comments 10/20/2016 10:47 PM 10/26/2016 12:59 PM * Full Code Date Activated Date Inactivated Comments 07/28/2015 12:02 PM 10/20/2016 10:47 PM Care Teams Heel Turner Relationship Specialty Start Date End Date Maral Alberto PA-C [employer] [id number] [place] [address] [facility] - General 01/12/24
--- OUTSIDE RECORDS SUMMARY | 2024-11-04 08:40 | XMS_ITS | Clinical Summary ---
Author Organization [employer] & [facility] Address [address] [place] [address] Care Team Providers Care Senior Digital Designer Name Role Phone Maral Alberto Primary Care Provider [phone] Allergies No known active allergies Medications ibuprofen (ADVIL; MOTRIN) 200 mg tablet Take 200 mg by mouth. Active azithromycin 250 mg tabletIndication s:Chronic obstructive pulmonary disease, unspecified COPD type (HC) Take 1 Tablet (250 mg) by mouth every 24 hours. 6 Tablet 3 5 Active fluticasone fur-umeclidinium -vilanterol 100-62.5-25 mcg inhalerIndicatio ns:Lsltu-5-qztwk rypsin deficiency (HC),Chronic obstructive pulmonary disease, unspecified COPD type (HC) Inhale 1 Puff by mouth once daily. Rinse mouth after use 180 Each 3 5 Active albuterol HFA 90 mcg/actuation inhalerIndicatio ns:Chronic obstructive pulmonary disease, unspecified COPD type (HC),Alpha-1-ant itrypsin deficiency (HC) Inhale 2 Puffs by mouth every 4 hours if needed for Shortness Of Breath or Wheezing. 3 Each 3 5 Active predniSONE 10 mg tabletIndication s:Centrilobular emphysema (HC),Alpha-1-ant itrypsin deficiency (HC),Chronic obstructive pulmonary disease, unspecified COPD type (HC) Take 40mg (4 tabs) daily x2 days --> 30mg (3 tabs) daily x2 days --> 20mg (2 tabs) daily x2 days --> 10mg (1 tab) daily x2 days --> stop. 20 Tablet 3 5 Active primidone 50 mg tablet Take 50 mg by mouth. 5 Active FLUoxetine 10 mg capsuleIndicatio ns:Major depressive disorder, recurrent episode, moderate (HC) Take 1 Capsule (10 mg) by mouth once daily. 90 Capsule 1 5 Active alendronate 70 mg tabletIndication s:Osteoporosis, unspecified osteoporosis type, unspecified pathological fracture presence Take 1 Tablet (70 mg) by mouth once a week in the morning. Take on empty stomach with full glass of water. Do not lie down for 1 hr. 12 Tablet 3 5 Active rosuvastatin 10 mg tabletIndication s:Elevated coronary artery calcium score Take 1 Tablet (10 mg) by mouth at bedtime. 90 Tablet 3 5 Active aspirin enteric coated 81 mg tabletIndication s:HTN (hypertension) Take 1 Tablet (81 mg) by mouth once daily with a meal. Do not crush or chew. 90 Tablet 3 5 Active latanoprost (XALATAN) 0.005 % ophthalmic solution Place 1 Drop into both eyes at bedtime. 5 Active lisinopriL (PRINIVIL; ZESTRIL) 10 mg tabletIndication s:HTN (hypertension) Take 1 Tablet (10 mg) by mouth once daily. 90 Tablet 5 Active lisinopriL (PRINIVIL; ZESTRIL) 10 mg tabletIndication s:HTN (hypertension) Take 1 Tablet (10 mg) by mouth once daily. 90 Tablet 3 4 10/18/19 25 Discontin ued(Reord er (E-cancel not sent)) aspirin enteric coated 81 mg tablet Take 1 Tablet (81 mg) by mouth once daily with a meal. Do not crush or chew. 5 10/19/19 25 Discontin ued(Reord er (E-cancel not sent)) lisinopriL (PRINIVIL; ZESTRIL) 10 mg tabletIndication s:HTN (hypertension) Take 1 Tablet (10 mg) by mouth once daily. 30 Tablet 5 10/24/19 25 Discontin ued(Reord er (E-cancel not sent)) Active Problems Problem Noted Date Diagnosed Date Low weight 10/23/2024 Elevated coronary artery calcium score Major depressive disorder, recurrent episode, mo derate 09/12/2024 Nicotine dependence in remission 12/02/[address] 12/02/2023 Emphysema due to ohfpu-7-wzggntnfzzr deficiency 11/23/2023 Tremors of nervous system - managed by neurology 07/14/2016 Family history of colon cancer 07/25/2012 HTN (hypertension) 06/02/2011 Age-related osteoporosis wit hout current pathological fracture 11/19/2009 COPD (chronic obstructive pu lmonary disease) (HC) - managed by [facility] 11/18/2009 Depression with anxiety 11/18/2009 Resolved Problems Problem Noted Date Diagnosed Date Resolved Date Major depression, recurrent 07/25/2012 12/07/2023 Early menopause 11/19/2009 12/07/2023 Tobacco abuse 11/18/2009 12/02/2023 Alpha 1 antitrypsin deficiency 11/18/2009 12/07/2023 Encounters Date Type Department Care Team Description 10/25/2024 Telephone [facility] [id number] [place] [id number] Sarah Beth Lama MD Medication Management (Aspirin//other OTC pain meds use) 10/23/2024 9:35 AM CDT Office Visit [facility] [id number] [place] [address] Maral Alebrto PA Medication Management (Patient presents to discuss medication management) 10/23/2024 Travel 10/17/2024 Refill [facility] [id number] [place] [address] Sarah Beth Lama MD Refill Request (lisinopriL, Aspirin) 10/09/2024 Telephone [facility] [address] [place] [address] Sarah Beth Lama MD Results 10/08/2024 Telephone [facility] [address] [place] [address] Sarah Beth Lama MD Results 10/05/2024 8:00 AM CDT Ancillary Procedure [facility] [address] [place] [address] 10/04/2024 11:20 AM CDT Office Visit [facility] [address] [place] [address] Domingo Iglesias MD Voice Issue (Hoarse Voice/Difficulty Talking) 10/04/2024 Travel 09/19/2024 11:00 AM CDT Office Visit [facility] [address] [facility] [address] [place] [address] Sarah Beth Lama MD Consult (INITIAL OFFICE VISIT. REF BY PCP./Dx: Chest pain, pleuritic. Chronic obstructive pulmonary disease, unspecified COPD type, Emphysema due to ypuky-0-pxrdxtfums n deficiency, Abnormal chest CT, & HTN. /) 09/19/2024 Travel 09/18/2024 Refill [facility] [address] [place] [address] Maral Alberto PA Refill Request (alendronate (FOSAMAX) 70 mg tablet/) 09/14/2024 Telephone [facility] [address] [address] Cardiology, Anw Appointment 09/13/[address] [address] Rosa Isela Mendez RT 09/12/2024 11:00 AM CDT Office Visit [facility] [address] [place] [address] Maral Alberto PA Follow Up (ED follow up from 08/29/24, chest pain and SOB. Patient still has chest pain today ) 09/12/2024 Telephone [facility] [address] [place] [address] Cardiology, Anw Appointment (OCTAVIO- ANY CARD) 09/12/2024 Travel 08/30/2024 3:00 PM CDT Office Visit [facility] [address] [place] [phone] Magdi Perez MD Follow Up (Patient came from parking lot and was feeling short of breath in waiting room. Patient feels pain in left side of lungs and was in ED on 08/29/24 due to enlarged nodules and difficulty breathing. Was put on prednisone 2 tabs x 5days. Underlying COPD) 08/30/2024 Travel 08/29/2024 Nurse Triage [facility] [address] [place] [address] Maral Alberto PA Chest Pain (Left sided with mild increase in SOB. ) 08/17/2024 11:05 AM CDT Office Visit [facility] [place] [address] [place] [phone] Diana Hoffmann MD Follow Up (pulmonary/follow up on chest xray/copd) 08/17/2024 Travel 08/06/2024 Telephone [facility] [place] [address] [place] [phone] Diana Hoffmann MD Referral 08/06/2024 Telephone [facility] [place] [address] [place] [phone] Diana Hoffmann MD Results from Last 3 Months Immunizations Immunization Administration Dates Next Due AMB Influenza, IIV3 (Age >=3 years)(Flu Clinic Only) 02/23/2010 COVID-19 vaccine ([employer] NTech 30mcg/0.3mL) 12YO+ BIVALENT PF, MDV 04/12/2022 COVID-19 vaccine ([employer] NTech 30mcg/0.3mL) PF, MDV 07/30/2020,07/09/2020 Influenza, IIV3 (Age 6-35 mos) 03/01/2011 Influenza, IIV3 (Age >=3 years) 02/29/20 13,02/08/2012,03/01/2011,2009,03/08/2006,03/30/2005,02/10/2004,1 ,03/07/2001,02/25/2000, 999,02/03/1998 Influenza, IIV4 01/23/2019, 8,05/25/2017,2015,03/07/2015,02/28/2014 Influenza, Inactivated AIIV4 (Age 65+ Years) Preserv Free 03/14/2023,04/06/2022,02/10/2021,2019 Influenza, Inactivated IIV3 (Age 65+ Years) Preserv Free 02/23/2024,04/06/2022 Pneumococcal Conj 20-valent (Prevnar 20) 03/14/2023 Pneumococcal Poly,23-Valent (Pneumovax) 01/14/2020,02/10/2004 Td (Age >=7 Years) 11/13/1997 Tdap 09/14/2017,08/28/2007 Family History Medical History Relation Name Comments Hypertension Father Stroke Father Cancer-colon Maternal Aunt Arthritis Mother RA Genetic Mother Alpha-1 antitry spsin deficiency Hypertension Mother Cancer-breast No Family History Relation Name Status Comments Father (Age 80) Maternal Aunt Mother (Age 78) Social History Tobacco Use Types Packs/Day Years Used Date Smoking Tobacco: Former Cigarettes 0.5 50 0 08/1970 - 08/2020 Passive Smoke Exposure: Never Smokeless Tobacco: Never Tobacco Cessation:Counseling Given: Not Answered Comments:Public Relations Director treating pt for smoking cessation Alcohol Use Standard Drinks/Week Comments Not Currently 0 (1 standard drink = 0.6 oz pur e alcohol) PHQ-2 Answer Date Recorded PHQ-2 TOTAL SCORE 2 10/23/2024 Social Connections Answer Date Recorded Do you often feel lonely or isolated from those around you? 0 12/07/2023 Financial Resource Strain Answer Date R ecorded Difficulty of Paying Living Expenses 3 12/07/2023 Difficulty of Paying Living Expenses Not on file 12/07/2023 Food Insecurity Answer Date Recorded Do you worry your food will run out before you are able to buy more? 1 12/07/2023 Transportation Needs Answer Date Record ed Does lack of transportation keep you from medica l appointments? 1 12/07/2023 Does lack of transportation keep you from work, meetings or getting things that you need? 1 12/07/2023 Housing Stability Answer Date Recorded What is your housing situation today? 1 12/07/2023 Utilities Answer Date Recorded Do you have trouble paying f or utilities (for example, heat, electricity, water, phone)? 1 12/07/2023 Comments No Sex and Gender Information Value Date Recorded Sex Assigned at Not on file Legal Sex Female 6:06 AM GROUNDHAND Gender Identity Not on file Sexual Orientation Not on file Occupation Industry Job Start Date Job End Date [place] [employer] Not on file Not on file N ot on file Obstetrics History Para Term AB IAB SAB Ectopic Multiple Livin g Live Births 2 2 2 0 0 0 0 0 0 2 Date Outcome GA Total Labor Labor/2nd/3rd Weight Sex Type Anes PTL Malrey A1 A5 Name Clin Term Term Last Filed Vital Signs Vital Sign Reading Time Taken Comments Blood Pressure 110/84 10/23/2024 9:53 AM CDT Pulse 56 10/23/2024 9:53 AM CDT Temperature 36.6 C (97.9 F) 09/12/2024 10:57 AM CDT Respiratory Rate 18 11/08/2014 7:05 PM CDT Oxygen Saturation 98% 09/19/2024 10:57 AM CDT Inhaled Oxygen Concentration - - Weight 39.3 kg (86 lb 11.2 oz) 10/23/2024 9:53 A M CDT Height 162.6 cm (5' 4) 10/23/2024 9:53 AM CDT Body Mass Index 14.88 10/23/2024 9:53 AM CDT Plan of Treatment Upcoming Encounters Date Type Department Care Team (Late st Contact Info) Description 12/05/2024 9:45 AM CDT Office Visit [facility] [address] [place] [address] [place] [address] 12/05/2024 11:00 AM CDT Ancillary Procedure [facility] [address] [address] 02/22/2025 11:05 AM GROUNDHAND Office Visit [facility] [place] [address] [phone] Diana Hoffmann MD [address] [phone] 02/28/2025 1:20 PM GROUNDHAND Office Visit [facility] [place] [address] [place] [phone] Magdi Perez MD [address] [place] [address] Health Maintenance Due Date Last Done Comments Hepatitis C screening for age 18-79 1972 Zoster (shingles) series for age 50+ (1 of 2) 2004 RSV vaccine for adults or (1 - Risk 60-74 years 1-dose series) 2014 Colonoscopy through age 75 10/06/202310/05, 10/05/2013, 12/01/2007 COVID-19 vaccine series (2023- season) 2023 04/12/2022, 07/30/2020, 07/09/2020 Mammogram for age 45-75 08/25/2024 08/26/19 24, 06/01/2022, 02/13/2020, Additional history exists Medicare Wellness for age 65+ 12/07/2024 12/07/2023, 04/06/2022, 02/10/2021, Additional history exists Influenza Vaccine (#1) 2024 , 03/14/2023, 04/06/2022, Additional history exists Low Dose CT (for lung CA) age 50-80 08/01/2025 08/01/2024 BMI (ht and wt on same day) for age 18+ 10/23/2025 10/23/2024, 09/19/2024, 09/12/2024, Additional history exists Depression screening for age 12+ 10/23/2025 10/23/2024, 12/07/2023, 08/29/2023, Additional history exists Tetanus booster 09/15/2027 09/14/2017, 08/09, 11/13/1997 Lipids for age 45-75 03/14/2028 03/14/2023, 04/06/2022, 02/10/2021, Additional history exists DEXA/DXA scan for age 65+ Completed 2022, 02/13/2020, 08/11/2016, Additional history exists Pneumococcal series for age 50+ Completed 03/14/2023, 01/14/2020, 02/10/2004 Hepatitis B series for 19+ Aged Out N o longer eligible based on patient's age to complete this topic Procedures Procedure Name Priority Date/Time Associated Diagnosis Comments CT CARDIAC CORONARY ARTERIES CV DUAL READ Routine 10/05/2024 8:40 AM CDT Chest pain, pleuritic Chronic obstructive pulmonary disease, unspecified COPD type (HC) Emphysema due to txozu-2-vqpdsytloqm deficiency (HC) Abnormal chest CT HTN (hypertension) Chest pain, unspecified type CT CARDIAC CORONARY ARTERIES RAD DUAL READ Routine 10/05/2024 8:40 AM CDT Chest pain, pleuritic Chronic obstructive pulmonary disease, unspecified COPD type (HC) Emphysema due to rvbqr-0-hmjlcfurgue deficiency (HC) Abnormal chest CT HTN (hypertension) EKG 12 LEAD Today 09/19/2024 11:02 AM CDT Abnormal chest CT SCAN-PULMONARY FUNCTION TEST 08/17/2024 12:[address] CHEST WO Routine 08/01/2024 11:10 AM CDT Chronic obstructive pulmonary disease, unspecified COPD type (HC) Alpha 1 antitrypsin deficiency XR MAMMO ELLIE BILAT SCREEN Routine 08/26/2023 3:27 PM CDT Visit for screening mammogram LIPID PANEL Routine 03/14/2023 10:30 AM GROUNDHAND HTN (hypertension) XR DXA BONE DENSITY 2 SITES AXIAL Routine 11/15/2022 11:08 AM CDT Osteoporosis, unspecified osteoporosis type, unspecified pathological fracture presence SCAN-COLONOSCOPY 10/05/2013 10:3 0 AM CDT from Last 3 Months or Most Recently Relevant to Health Maintenance Results * CT CARDIAC CORONARY ARTERIES CV DUAL READ (10/05/2024 8:40 AM CDT) Anatomical Region Laterality Modality HEART Computed Tomogra phy 10/05/2024 8:27 AM CDT Narrative 10/05/2024 11:13 AM CDT [facility] Cardiac CT Report Name: YENIFER CHISHOLM : Scan Date: Accession Number: [id number] Status: Final Electronically signed by Bruce Orellana 10:46:58 VITALS HEIGHT: 64 in (163 cm) WEIGHT: 86 lbs (39 kgs) BSA: 1.37 m^2 BMI: 15 kg/m^2 BP: 135 / 87 mmHg BASELINE HR: 75 BPM HEART RHYTHM: PACs FINAL IMPRESSION 1. Moderate nonobstructive coronary atherosclerosis. - Calcium score is 101, 74th percentile for age group. - Total plaque volume is 74 mm3 and percent atheroma volume is 3.1%. - Noncalcified plaque volume is 26 mm3 and percent atheroma volume is 1.1%. 2. Probable small PFO. 3. No evidence of epicardial coronary artery disease to explain patient's symptoms. 4. Please see separate radiology report for noncardiac findings. RECOMMENDATIONS: Consider potential noncoronary causes of patient s symptoms. STUDY QUALITY: Study quality is good. CAD-RADS: CAD-RADS Classification 2 (25-49% stenosis). CALCIUM SCORING: Total coronary artery calcium score 101. CORTEZ percentile based on age, gender, and race is 74. DOMINANCE: Right dominant coronary artery system. LM: The LM is normal. LAD: The proximal LAD has partially calcified atherosclerosis. There is a 25-49% proximal LAD stenosis. There is no plaque in the mid LAD. There is no mid LAD stenosis. There is no plaque in the distal LAD. There is no distal LAD stenosis. D1: The first diagonal is normal. D2: The second diagonal is normal. RAMUS: The ramus is normal. LCX: The LCx is normal. OM1: The first obtuse marginal is normal. OM2: The second obtuse marginal is normal. OM3: The third obtuse marginal is normal. RCA: The RCA is normal. RIGHT PDA: The right PDA is normal. RIGHT PLB: The right posterolateral branch is too small to characterize. OTHER FINDINGS: Thoracic aorta: Left-sided arch Aortic sinus maximum cusp-cusp: 36 mm. Ascending aorta maximum diameters: 34 x 34 mm. Descending thoracic aorta maximum diameters: 24 x 23 mm. Pericardium: No effusion. Left atrium: Normal contrast opacification. Atrial septum: Probable PFO. Pulmonary veins: Normal anatomy. Superior vena cava: Normal attachment to right atrium Inferior vena cava: Normal attachment to right atrium Mid pulmonary trunk: 28 x 24 mm. Device leads: None. Coronary artery plaque quantification was calculated by [email or web address] High risk plaque burden is defined by any of the following: Presence of >=70% diameter stenosis Coronary calcium score >1000 Coronary calcium score >300 and percent total plaque volume >=5% Coronary calcium score >300 and percent noncalcified plaque volume >=2.5% Percent total atheroma volume >15% or noncalcified plaque volume >7.5% CALCIUM SCORING TABLE . . 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[employer] SCANNER MODEL: [employer] DOSE REDUCTION ALGORITHM: Prospective/Wyeh-ecg-lnepm PHASE UNITS: ms START PHASE: 280 ms END PHASE: 400 ms EKG GATED: Yes PRE-CONTRAST: Yes POST-CONTRAST: Yes 3D RECONSTRUCTION: Yes GENERAL CONTRAST AGENT CONTRAST AGENT USED?: Yes TYPE: Omnipaque 350 DOSE: 76 ml RATE: 6 ml/s ROUTE: IV ARM: Left BOLUS TECHNIQUE: Biphasic SERUM CREATININE: 0.8 mg/dL GFR: 75.59 ml/min/1.73m^2 CT CONTRAST REACTION: None MEDICATION ADMINISTERED DURING SCAN TYPE: Nitroglycerin, sublingual NITROGLYCERIN, TOTAL DOSE: 0.8 mg RADIATION DOSE DLP: 47.7 KV: 70 SETUP PATIENT TYPE: Outpatient REASON(S) FOR SCAN: Chest pain REFERRING PHYSICIAN: SARAH BETH LAMA TECHNOLOGIST: Triny Goyal Patient Account [id number] ICD10 Codes R07.81, J44.9, J43.8, E88.01, R93.89, I10, R07.9 Report generated by [employer], a product of [employer] [facility] Claudio Lama MD CT Final Result * CT CARDIAC CORONARY ARTERIES RAD DUAL READ (10/05/2024 8:40 AM CDT) Anatomical Region Laterality Modality HEART Computed Tomogra phy 10/06/2024 1:06 PM CDT Narrative 10/06/2024 1:06 PM CDT For Patients: As a result of the Cures Act, medical imaging exams and procedure reports are released immediately into your electronic medical record. You may view this report before your referring provider. If you have questions, please contact your health care provider. THIS IS THE RADIOLOGY OVER READ REPORT OF A DUAL READ STUDY. READ THE SEPARATE CARDIOLOGY REPORT FOR CARDIOVASCULAR FINDINGS. REPORTS MAY BE FINALIZED AT DIFFERENT TIMES. COMPARISON : CT scan of the chest 08/01/2024 TECHNIQUE : Please see cardiology report for technical information. This exam is being performed in conjunction with the services provided by the [facility] ([facility]). INDICATION: Cardiac over-read. FINDINGS: Aorta: This is reported by cardiology. Mediastinum: No adenopathy. Pulmonary arteries: Bolus timing may limit evaluation. Visualized/opacified pulmonary arteries demonstrate no filling defects. Lungs and pleural structures: Pulmonary emphysema. Patchy new alveolar opacity in the left upper lobe. No pleural effusion. Miscellaneous: No acute or suspicious skeletal or upper abdominal imaging abnormality. IMPRESSION : 1. See separate cardiology report for cardiac findings. 2. Background advanced pulmonary emphysema. 3. New peripheral patchy alveolar opacities moderately dense and irregular marginated in the left upper lobe. Short interval since the prior exam. Pneumonia could be considered superimposed on underlying obstructive lung disease. Stable spiculated additional nodular opacity in the left lower lobe with no change. Follow-up chest CT scan suggested in 3 months. Please note that all CT scans at this facility use dose modulation, iterative reconstruction, and/or weight-based dosing when appropriate to reduce radiation dose to as low as reasonably achievable. Dictated by Paulino Francis MD @ 10/06/2024 1:06:18 PM (Electronically Signed) Procedure Note Paulino Francis MD - 10/06/2024 For Patients: As a result of the Cures Act, medical imagingexams and procedure reports are released immediately into your electronicmedical record. You may view this report before your referring provider.If you have questions, please contact your health care provider. THIS IS THE RADIOLOGY OVER READ REPORT OF A DUAL READ STUDY. READ THESEPARATE CARDIOLOGY REPORT FOR CARDIOVASCULAR FINDINGS. REPORTS MAY BEFINALIZED AT DIFFERENT TIMES. COMPARISON : CT scan of the chest 08/01/2024 TECHNIQUE : Please see cardiology report for technical information. This exam is being performed in conjunction with the services provided bythe [facility] ([facility]). INDICATION: Cardiac over-read. FINDINGS: Aorta: This is reported by cardiology. Mediastinum: No adenopathy. Pulmonary arteries: Bolus timing may limit evaluation. Visualized/opacified pulmonary arteriesdemonstrate no filling defects. Lungs and pleural structures: Pulmonary emphysema. Patchy new alveolaropacity in the left upper lobe. No pleural effusion. Miscellaneous: No acute or suspicious skeletal or upper abdominal imagingabnormality. IMPRESSION : 1. See separate cardiology report for cardiac findings. 2. Background advanced pulmonary emphysema. 3. New peripheral patchy alveolar opacities moderately dense and irregularmarginated in the left upper lobe. Short interval since the prior exam.Pneumonia could be considered superimposed on underlying obstructive lungdisease. Stable spiculated additional nodular opacity in the left lowerlobe with no change. Follow-up chest CT scan suggested in 3 months. Please note that all CT scans at this facility use dose modulation,iterative reconstruction, and/or weight-based dosing when appropriate toreduce radiation dose to as low as reasonably achievable. Dictated by Paulino Francis MD @ 10/06/2024 1:06:18 PM (Electronically Signed) Sarah Beth Lama MD CT Final Result * EKG 12 LEAD (09/19/2024 11:02 AM CDT) Interpretation Normal sinus rhythm Normal ECG No previous ECGs available Ventricular Rate 87 BPM Atrial Rate 87 BPM P-R Interval 138 ms QRS Duration 82 ms QT 358 ms QTc 430 ms P Sab[place] 92 degrees R Sab[place] 84 degrees T Sab[place] 81 degrees 09/19/2024 11:0 2 AM CDT 09/19/2024 1:20 PM CDT us Sarah Beth Lama MD EKG ORD Final Result * SCAN-PULMONARY FUNCTION TEST (08/17/2024 12:00 AM CDT) us Scanner OTHER Final Result * CT CHEST WO (08/01/2024 11:10 AM CDT) Anatomical Region Laterality Modality CHEST, THORAX, HEART Computed To mography 08/03/2024 12:4 2 PM CDT Impressions 08/03/2024 12:42 PM CDT 1. Marked emphysema and scarring in the upper lobes. 2. Spiculated 8 mm left lower lobe nodule and 6 mm right upper lobe nodule. In accordance with Fleischner Society Guidelines (see below), a 3-6 month follow up chest CT recommended. 3. Coronary artery disease. FLEISCHNER SOCIETY GUIDELINES: LOW RISK: - nodule less than 6 mm: No follow-up needed. - nodule 6-8 mm: Initial follow-up CT at 6-12 months and then at 18-24 months if no change. - nodule greater than 8 mm: Follow-up CTs at around 3, 9, and 24 months. Dynamic contrast-enhanced CT, PET, and/or biopsy. MULTIPLE LOW RISK: - nodule less than 6 mm: No follow-up needed. - nodule 6-8 mm: CT at 3-6 months, then consider CT at 18-24 months. - nodule greater than 8 mm: CT at 3-6 months, then consider CT at 18-24 months. HIGH RISK: - nodule less than 6 mm: Follow-up at 12 months. If no change, no further imaging needed. - nodule 6-8 mm: Initial follow-up CT at 3-6 months and then at 9-12 and 24 months if no change. - nodule greater than 8 mm: Follow-up CTs at around 3, 9, and 24 months. Dynamic contrast-enhanced CT, PET, and/or biopsy. MULTIPLE HIGH RISK: - nodule less than 6 mm: Optional CT at 12 months. - nodule 6-8 mm: CT at 3-6 months, then at 18-24 months. - nodule greater than 8 mm: CT at 3-6 months, then at 18-24 months. HIGH RISK is defined as one or more of the following: - at least 20 pack-year smoking history or equivalent second-hand exposure. - personal history of cancer or family history of lung cancer. - occupational exposure (asbestos, beryllium, silica, uranium, radon) - chronic interstitial/fibrotic lung disease. Please note that all CT scans at this facility use dose modulation, iterative reconstruction, and/or weight-based dosing when appropriate to reduce radiation dose to as low as reasonably achievable. Dictated by Ryan Foster MD @ 08/03/2024 12:42:08 PM (Electronically Signed) Narrative 08/03/2024 12:42 PM CDT For Patients: As a result of the Cures Act, medical imaging exams and procedure reports are released immediately into your electronic medical record. You may view this report before your referring provider. If you have questions, please contact your health care provider. INDICATION: COPD. Alpha-1 antitrypsin deficiency. TECHNIQUE: Volumetric helical scanning of the thorax was performed without IV contrast material. Coronal and sagittal reconstructions were obtained. COMPARISON: Chest x-ray of 09/28/2016 FINDINGS: Marked emphysema is demonstrated. Scarring in the upper lobes is also noted. No acute infiltrate is demonstrated. A spiculated 8 mm left lower lobe nodule is demonstrated on image 115 of series 2. A 6 mm left upper lobe nodule is noted on image 67. There is no significant airway abnormality. No pleural effusion is demonstrated. There is no mediastinal or hilar lymphadenopathy. The heart size is normal. Calcified coronary arterial plaque is demonstrated. Images of the upper abdomen are unremarkable except for a 2 mm left renal stone. Procedure Note Ryan Foster MD - 08/03/2024 For Patients: As a result of the Cures Act, medical imagingexams and procedure reports are released immediately into your electronicmedical record. You may view this report before your referring provider.If you have questions, please contact your health care provider. INDICATION: COPD. Alpha-1 antitrypsin deficiency. TECHNIQUE: Volumetric helical scanning of the thorax was performed without IVcontrast material. Coronal and sagittal reconstructions were obtained. COMPARISON: Chest x-ray of 09/28/2016 FINDINGS: Marked emphysema is demonstrated. Scarring in the upper lobes is alsonoted. No acute infiltrate is demonstrated. A spiculated 8 mm left lower lobe nodule is demonstrated on image 115 ofseries 2. A 6 mm left upper lobe nodule is noted on image 67. There is no significant airway abnormality. No pleural effusion isdemonstrated. There is no mediastinal or hilar lymphadenopathy. The heart size is normal. Calcified coronary arterial plaque isdemonstrated. Images of the upper abdomen are unremarkable except for a 2 mm left renalstone. IMPRESSION: 1. Marked emphysema and scarring in the upper lobes. 2. Spiculated 8 mm left lower lobe nodule and 6 mm right upper lobenodule. In accordance with Fleischner Society Guidelines (see below), a3-6 month follow up chest CT recommended. 3. Coronary artery disease. FLEISCHNER SOCIETY GUIDELINES: LOW RISK: - nodule less than 6 mm: No follow-up needed. - nodule 6-8 mm: Initial follow-up CT at 6-12 months and then at 18-24months if no change. - nodule greater than 8 mm: Follow-up CTs at around 3, 9, and 24 months.Dynamic contrast-enhanced CT, PET, and/or biopsy. MULTIPLE LOW RISK: - nodule less than 6 mm: No follow-up needed. - nodule 6-8 mm: CT at 3-6 months, then consider CT at 18-24 months. - nodule greater than 8 mm: CT at 3-6 months, then consider CT at 18-24months. HIGH RISK: - nodule less than 6 mm: Follow-up at 12 months. If no change, no furtherimaging needed. - nodule 6-8 mm: Initial follow-up CT at 3-6 months and then at 9-12 and24 months if no change. - nodule greater than 8 mm: Follow-up CTs at around 3, 9, and 24 months.Dynamic contrast-enhanced CT, PET, and/or biopsy. MULTIPLE HIGH RISK: - nodule less than 6 mm: Optional CT at 12 months. - nodule 6-8 mm: CT at 3-6 months, then at 18-24 months. - nodule greater than 8 mm: CT at 3-6 months, then at 18-24 months. HIGH RISK is defined as one or more of the following: - at least 20 pack-year smoking history or equivalent second-handexposure. - personal history of cancer or family history of lung cancer. - occupational exposure (asbestos, beryllium, silica, uranium, radon) - chronic interstitial/fibrotic lung disease. Please note that all CT scans at this facility use dose modulation,iterative reconstruction, and/or weight-based dosing when appropriate toreduce radiation dose to as low as reasonably achievable. Dictated by Ryan Foster MD @ 08/03/2024 12:42:08 PM (Electronically Signed) us Diana Hoffmann MD CT Final Resul t * XR MAMMO ELLIE BILAT SCREEN (08/26/2023 3:27 PM CDT) Anatomical Region Laterality Modality BREASTS, Breast Left, Breast Right Bilateral Mammography Impressions 08/29/2023 1:02 PM CDT There is no radiographic evidence for malignancy. Recommend annual mammograms. MAMMOGRAM ASSESSMENT: ACR 1 Negative PATIENTS: You will also receive a letter with your examination results in an easy to read format. If you have questions about your results, please contact your referring provider. Narrative 08/29/2023 1:02 PM CDT For Patients: As a result of the Century Cures Act, medical imaging exams and procedure reports are released immediately into your electronic medical record. You may view this report before your referring provider. If you have questions, please contact your health care provider. XR MAMMO ELLIE BILAT SCREEN [[id number]] CLINICAL HISTORY: This is an asymptomatic 67 y.o. patient. INDICATION FOR EXAM: Mammogram Screening. TECHNIQUE: CC & MLO views were obtained. This study was evaluated with the assistance of Computer-Aided Detection. Breast Tomosynthesis was used in interpretation. COMPARISON FILM: Yes 06/01/22 [facility] FINDINGS: The breasts are heterogeneously dense, which may obscure small masses. There are no dominant masses, suspicious micro calcifications or areas of architectural distortion. us Yenifer Pitt CNM MAMMO Final Result * LIPID PANEL (03/14/2023 10:30 AM [facility]) CHOLESTEROL,TOTAL 199 100 - 199 mg/dL 03/15/2023 12:21 AM [facility] [employer] Comment: Cholesterol, Total Reference Ranges Desirable <200 mg/dL Borderline 200-239 mg/dL High >=240 mg/dL TRIGLYCERIDES 66 <150 mg/dL 03/15/2023 12:21 AM [facility] HDL CHOLESTEROL 83 >40 mg/dL 12:21 AM [facility] NON-HDL CHOLESTEROL 116 <145 mg/dl 03/15/2023 12:21 AM [facility] CHOL/HDL RATIO 2.40 <4.50 03/15/2023 12:21 AM [facility] [employer] [facility] LDL CHOLESTEROL 103 <=130 mg/dL 03/15/2023 12:21 AM [facility] VLDL CHOLESTEROL 13 <=30 mg/dL 03/15/2023 12:21 AM [facility] PROVIDER ORDERED STATUS RANDOM 03/15/2023 12:21 AM [facility] [employer] [facility] Blood BLOOD SPECIMEN / Unknown Venipuncture / Unknown 03/14/2023 10:30 AM [facility] 03/14/2023 10:43 AM [facility] Yenifer Pitt CNM CHEMISTRY Final Result [facility] [address] [place] [address], * XR DXA BONE DENSITY 2 SITES AXIAL (11/15/2022 11:08 AM CDT) Anatomical Region Laterality Modality Spine, HIPS, HIPL, HIPR Computed Radiography 11/15/2022 11:0 8 AM CDT Impressions 11/15/2022 12:00 PM CDT OSTEOPOROSIS. T score meets the WHO criteria for osteoporosis at one or more measured sites. The risk of osteoporotic fracture increases approximately two-fold for each standard deviation decrease in T-score. Narrative 11/15/2022 12:00 PM CDT For Patients: As a result of the Century Cures Act, medical imaging exams and procedure reports are released immediately into your electronic medical record. You may view this report before your referring provider. If you have questions, please contact your health care provider. EXAM: XR DXA BONE DENSITY 2 SITES AXIAL LOCATION: [facility] DATE: 11/15/2022 INDICATION: D. osteoporosis (must be documented by previous exam) - m81.0 Osteoporosis, Unspecified Osteoporosis Type, Unspecified Pathological Fracture Presence DEMOGRAPHICS: Age- 66 years. Gender- Female. Menopausal status- Unknown. COMPARISON: None. TECHNIQUE: Dual-energy x-ray absorptiometry (DXA) performed with routine technique. FINDINGS: DXA RESULTS -Lumbar Spine: L1-L4: BMD: 0.822 g/cm2. T-score: -3.0. Z-score: -0.5. Degenerative change may artifactually increase BMD. -RIGHT Hip Total: BMD: 0.538 g/cm2. T-score: -3.7. Z-score: -1.8. -RIGHT Hip Femoral neck: BMD: 0.540 g/cm2. T-score: -3.6. Z-score: -1.4. -LEFT Hip Total: BMD: 0.564 g/cm2. T-score: -3.5. Z-score: -1.6. -LEFT Hip Femoral neck: BMD: 0.575 g/cm2. T-score: -3.3. Z-score: -1.2. WHO T-SCORE CRITERIA -Normal: T score at or above -1 SD -Osteopenia: T score between -1 and -2.5 SD -Osteoporosis: T score at or below -2.5 SD The World Health Organization (WHO) criteria is applicable to perimenopausal females, postmenopausal females, and men aged 50 years or older. FRACTURE RISK -FRAX Results: The 10 year probability of major osteoporotic fracture is 24.9%, and of hip fracture is 10.3%, based on left femoral neck BMD. RECOMMENDATIONS Consider treatment if major osteoporotic fracture score is greater than or equal to 20%, and if the hip fracture score is greater than or equal to 3%. Procedure Note Fernando Woody DO Abhi - 11/15/2022 For Patients: As a result of the 21st Century Cures Act, medical imagingexams and procedure reports are released immediately into your electronicmedical record. You may view this report before your referring provider.If you have questions, please contact your health care provider. EXAM: XR DXA BONE DENSITY 2 SITES AXIAL LOCATION: [facility] DATE: 11/15/2022 INDICATION: D. osteoporosis (must be documented by previous exam) - m81.0Osteoporosis, Unspecified Osteoporosis Type, Unspecified PathologicalFracture Presence DEMOGRAPHICS: Age- 66 years. Gender- Female. Menopausal status- Unknown. COMPARISON: None. TECHNIQUE: Dual-energy x-ray absorptiometry (DXA) performed with routinetechnique. FINDINGS: DXA RESULTS -Lumbar Spine: L1-L4: BMD: 0.822 g/cm2. T-score: -3.0. Z-score: - 0.5.Degenerative change may artifactually increase BMD. -RIGHT Hip Total: BMD: 0.538 g/cm2. T-score: -3.7. Z-score: -1.8. -RIGHT Hip Femoral neck: BMD: 0.540 g/cm2. T-score: -3.6. Z-score: -1.4. -LEFT Hip Total: BMD: 0.564 g/cm2. T-score: -3.5. Z-score: -1.6. -LEFT Hip Femoral neck: BMD: 0.575 g/cm2. T-score: -3.3. Z-score: -1.2. WHO T-SCORE CRITERIA -Normal: T score at or above -1 SD -Osteopenia: T score between -1 and -2.5 SD -Osteoporosis: T score at or below -2.5 SD The World Health Organization (WHO) criteria is applicable toperimenopausal females, postmenopausal females, and men aged 50 years orolder. FRACTURE RISK -FRAX Results: The 10 year probability of major osteoporotic fracture is24.9%, and of hip fracture is 10.3%, based on left femoral neck BMD. RECOMMENDATIONS Consider treatment if major osteoporotic fracture score is greater than orequal to 20%, and if the hip fracture score is greater than or equal to3%. IMPRESSION: OSTEOPOROSIS. T score meets the WHO criteria for osteoporosis at one ormore measured sites. The risk of osteoporotic fracture increasesapproximately two-fold for each standard deviation decrease in T-score. us Yenifer Pitt CNM DEXA Final Result * SCAN-COLONOSCOPY (10/05/2013 10:30 AM CDT) Narrative Transcriptions Bruce Cannon - 10/05/2013 9:29 AM CDT [facility] [address] [place] [address], [address], [place] [address] Patient Name: Yenifer Chisholm Gender: Female Exam Date: 10/05/2013 Visit Number: [id number] Age: 57 Years Date of : 1955 Attending MD: Bruce Cannon MD Medical Record#: [id number] ----- Procedure: Colonoscopy Indications: Colorectal cancer screening Referring MD: Yenifer Pitt CNM Primary MD: Yenifer Pitt CNM Medications: Intra Procedure Medications: Fentanyl given 0.1 mg by IV Midazolam given 2 mg by IV Complications: Procedure: An examination of the heart and lungs was performed and found to be withinacceptable limits. The patient was therefore deemed a reasonablecandidate for endoscopy and conscious sedation. The risks and benefits of the procedure were explained to the patient.After obtaining informed consent, I medicated the patient and passed thescope without difficulty via the rectum to the cecum. The appendiceal orificeand ic valve were identified. The scope was retroflexed during theexamination The quality of the prep was good (Miralax/Gatorade/2 tabletsBisacodyl/Magnesium Citrate). This was a complete examination throughout the entire colon. Findings: Polyp location: descending colon. Quantity: 1. Size: 2 mm. Polyp shape:sessile. Maneuver: polypectomy was performed with a cold biopsy forceps. Removal: complete. Retrieval: complete. Bleeding: none. Hemorrhoids. Internal and external hemorrhoids with evidence of recentbleeding. Remainder of the exam is normal. Impression: Hemorrhoids Colon polyp Pathology Results: A: COLON, DESCENDING, POLYP: 1. Colonic mucosa with no diagnostic abnormalities 2. No serrated change, dysplasia or malignancy MICROSCOPIC A: Performed Electronically signed by: Nestor Beaulieu MD Final Plan: Repeat colonoscopy in 10 years for screening. If you have signs orsymptoms of lower GI illness or a new diagnosis of colon cancer in animmediate family member, you should contact [facility] or your primary providerto discuss whether your next exam should be repeated sooner. Return for a colonoscopy in 10 years. We will attempt to contact you at appropriate intervals via U.[place]. mail. Wemay not be able to find you or contact you at that time, therefore youshould know that the responsibility for following our recommendation restswith you. If you don't hear from us at the time your procedure is due,please contact our office to schedule an appointment. If your contactinformation should change, please contact our office so that we can updateyour record. Plan Comments: _Electronically signed by: Bruce Cannon MD 10/05/2013 [facility] [phone] *Portions of this document may have been recorded using electronic voicerecognition technology. us Bruce Cannon MD OTHER Final Result from Last 3 Months or Most Recently Relevant to Health Maintenance Insurance [employer] MR Care Teams Senior Digital Designer Relationship Specialty [place] [address] [place] [address] PCP - General Physician Rn Referral 02/23/24
[2024-11-04 08:46] LABS: Albumin* 4.5 g/dL (3.3-5.0); Chloride* 95 mmol/L (96-114)
[2024-11-04 08:47] LABS: Potassium* 4.4 mmol/L (3.6-5.1); Sodium* 131 mmol/L (135-149)
[2024-11-04 08:49] LABS: Blood Urea Nitrogen* 36 mg/dL (7-30); Creatinine* 1.1 mg/dL (0.5-1.5); Est. Creatinine Clearance* 29.72; Estimated Glomerular Filt Rate 54 ml/min
[2024-11-04 08:50] LABS: Alanine Aminotransferase* 20 U/L (4-35); Alkaline Phosphatase* 96 U/L (40-150); Anion Gap 11 mEq/L (7-15); Aspartate Amino Transferase* 34 U/L (12-35); Bilirubin Direct* 0.2 mg/dL (0.0-0.5); Bilirubin Total* 0.7 mg/dL (0.1-1.5); Calcium* 9.7 mg/dL (8.4-10.6); Carbon Dioxide* 25 mmol/L (20-32); Glucose* 115 mg/dL (60-115); Total Protein* 7.5 g/dL (6.0-8.3)
[2024-11-04 09:03] LABS: NT Pro B Type NatriureticPept* 451 pg/mL (See Note)
[2024-11-04 09:47] LABS: Appearance Urine Clear (Clear)
--- NOTE | 2024-11-04 11:36 | PM.IMHP1 ---
Assessment and Plan Assessment and plan (1) Small bowel obstruction: Problem comment: -questionable internal hernia -has had previous SBO, conservative care previously -Hx of normal cscope in 2014 -hx of BOWEN/BSO previously -has been functionally NPO 3 days. Actively vomiting this morning. -CT reviewed with general surgery. -continue NPO status, IV hydration, analgesics and antiemetics, plan is for surgical intervention today. Status: Acute (2) Pre-op evaluation: Problem comment: -hx of severe COPD (FEV1/FVC) ratio of 44%. Not on oxygen. Not on steroids. Followed by pulmonary. -hx of Alpha-1 antitrypsin deficiency. no obvious liver involvement. severe COPD as detailed above. -history of nonobstructive coronary artery disease. No history of interventions or acute coronary event. EKG is reviewed. Chest x-ray is ordered. Labs reviewed. -can proceed to the OR Status: Acute (3) Stage 4 very severe COPD by GOLD classification: Problem comment: -known history of alpha-1 antitrypsin deficiency. Previous tobacco abuse. -Trelegy, albuterol -followed by Dr. Lin at [facility] -history of hoarseness, nodules being followed by pulmonary Status: Acute (4) CAD (coronary artery disease): Problem comment: -nonobstructive; no hx of interventions, new meds and primary prevention of ACS main goal with cards. -EKG reviewed on admission. No ischemia. Can proceed to the OR. September 2024 CT Angio 1. Moderate nonobstructive coronary atherosclerosis. - Calcium score is 101, 74th percentile for age group. - Total plaque volume is 74 mm3 and percent atheroma volume is 3.1%. - Noncalcified plaque volume is 26 mm3 and percent atheroma volume is 1.1%. 2. Probable small PFO. 3. No evidence of epicardial coronary artery disease to explain patient's symptoms. Echo has not been completed but is scheduled as an outpatient -asp, acei, statin Status: Acute (5) Elevated lactic acid level: Problem comment: -has received a bolus normal saline in the ER, getting LR bolus now on the floor. No history of CHF. Status: Acute (6) Hyponatremia: Problem comment: Noted, following Status: Acute (7) Sarcopenia: Problem comment: BMI 14 Status: Acute (8) HTN (hypertension): Problem comment: -lisinopril monotherapy Status: Acute (9) Essential tremor: Problem comment: -follows with Neurology. On primidone Status: Acute (10) Former heavy tobacco smoker: Problem comment: quit in 2021 with admission for COPD. Status: Inactive (11) Alpha 1-antitrypsin PiMS phenotype: Status: Acute Hospitalist- H&P: HPI History of Present Illness Date Seen: 11/04/24 Chief complaint: stomach pain, PT states bowel obstruction Narrative: ADMISSION HISTORY AND PHYSICAL - HOSPITALIST Chief Complaint: Abdominal pain HPI: 68-year-old white female with a history of smoking and nonobstructive coronary artery disease presents with acute abdominal pain x3 days. She has had a history of small-bowel obstructions and felt this was likely what was happening. She went to clear fluids at home and then nothing by mouth. Her symptoms did not resolve. She had vomiting this morning. She presented to the emergency room. Her workup revealed that she did in fact have a small-bowel obstruction with noted internal hernia and transition point. She was stabilized with fluids and IV morphine. An NG tube was not placed. Surgical consultation recommended exploratory laparotomy based on the internal his hernia. She was brought to the floor preoperatively as the OR was busy with other cases. Her past medical history is relevant for very severe COPD. However she is not steroid or O2 dependent. A blood gas was not done in the ER. There is no elevation of her white blood cell count. Her platelets are normal. Her sodium is slightly low at 131. She is mildly volume contracted with a BUN of 36 and a creatinine of 1.1. Her CO2 is normal. Her lactate is mildly elevated at 2.2. LFTs are normal. Her CRP is mildly elevated at 4.4. Her CT revealed: 1. Long segment severe dilatation of the small bowel with a transition point in the central abdomen suspicious for an internal hernia (2; 65). Surgical consultation is recommended. The gastrointestinal tract upstream from the dilated bowel is decompressed, as is the colon. No associated intramural hemorrhage, wall thickening, mural hypoenhancement or hyperenhancement or pneumatosis intestinalis of the dilated small bowel to indicate ischemia at this time. Close clinical follow-up is recommended in this regard. 2. A follow-up chest CT is otherwise recommended in 6 months for an incidental 7 mm left lower lobe nodule per Fleischner society guidelines. 3. Nonspecific gallbladder distention which could be due to a fasting state in this patient with a small-bowel obstruction. No gallbladder wall thickening or pericholecystic inflammatory changes to indicate acute cholecystitis. Her EKG showed normal sinus rhythm. A chest x-ray is ordered. ER COURSE: IV fluids and morphine were administered, labs and imaging. General surgery consult. Brought to the floor in stable condition. CODE STATUS: FULL CODE PCP: CLAUDE MENDOZA PA-C EMERGENCY CONTACT PLAN: Her sons Nahid and/or Caleb I've updated the PFSH, medications and allergies in the [facility] tabs. REVIEW OF SYSTEMS: 12-point ROS completed with patient and negative unless otherwise stated in HPI or below. PHYSICAL EXAM: CONSTITUTIONAL: Conversive, good historian. A/O. Knows setting and context. GENERAL: Well-developed and above ideal body weight, in no respiratory distress. VITAL SIGNS: see record. HEENT: Sclerae are anicteric. No petechiae. CARDIAC: rhythm is regular. There is no S3 or rub. No harsh murmurs. Extremities show trace edema with symmetrical pulses. PULM: GENERALLY DECREASED THROUGHOUT. Specifically, no wheezes. No rales. No crackles. ABDOMEN: Mildly distended. Slightly tender to palpation. Otherwise quite benign. NEURO: Speech is fluent. A brief neurologic exam is negative. SKIN: No rashes, petechiae, concerning changes PSYCHIATRIC: Euthymic. FLOOR CARE DVT: Lovenox GI: IV PPI Time spent: Today I spent 75 minutes seeing the patient, discussing the patient with ER staff, reviewing [facility] and [facility] notes/diagnostics, discussing the care plan with our care time that includes social work, PT/OT, pharmacy, RT, care home and documenting my impressions and plan in the medical record. MEDICAL NECESSITY FOR HOSPITALIZATION Anticipated midnights in the hospital: 4-5 Admitting diagnosis: Small-bowel obstruction Risk of morbidity and mortality: high Acuity is characterized as high and reflected in: Severe COPD, sarcopenia, pulmonary cachexia, nonobstructive CAD. This patient will require hospital services as outlined in the assessment and plan in order to stabilize and be safely discharged to a lower level of care. Because of the risk and acuity as described above, this patient cannot be managed at a lower level of care. LENGTH OF STAY: 2 IP ? Anticipated LOS>2 midnights due to acuity of clinical presentation requiring inpatient level of care Medical Decision Making Medical Decision Making Has patient completed a Health Care Directive: No PFSH PFSH Medical History Pulmonary cachexia due to COPD ?R64 - Cachexia (ICD-10) ?J44.9 - Chronic obstructive pulmonary disease, unspecified (ICD-10) Alpha 1-antitrypsin PiMS phenotype ?Z14.8 - Genetic carrier of other disease (ICD-10) Former heavy tobacco smoker ?Z87.891 - Personal history of nicotine dependence (ICD-10) Stage 4 very severe COPD by GOLD classification ?J44.9 - Chronic obstructive pulmonary disease, unspecified (ICD-10) CAD (coronary artery disease) ?I25.10 - Atherosclerotic heart disease of [place] coronary artery without angina pectoris (ICD-10) Depression ?F32.A - Depression, unspecified (ICD-10) Osteoporosis ?M81.0 - Age-related osteoporosis without current pathological fracture (ICD-10) Hyperlipidemia ?E78.5 - Hyperlipidemia, unspecified (ICD-10) Sarcopenia ?M62.84 - Sarcopenia (ICD-10) Surgical History S/P BOWEN-BSO ?Z90.710 - Acquired absence of both cervix and uterus (ICD-10) ?Z90.722 - Acquired absence of ovaries, bilateral (ICD-10) ?Z90.79 - Acquired absence of other genital organ(s) (ICD-10) History of back surgery ?Z98.890 - Other specified postprocedural states (ICD-10) H/O cone biopsy of cervix ?Z98.890 - Other specified postprocedural states (ICD-10) Social History What is your current living situation?: I presently have a place to live Problems where you live: mold and water leaks Problems where you live details: my son needs to get working on some things In the past 12 months, utilities in danger of being shut off: no In past 12 months, lack of transportation kept you from medical appts, meetings, work, or getting things needed for daily living: no In the past 12 mos, have been you worried that your food would run out before you had money to buy more?: never true In the past 12 mos, the food you bought just didn't last and you didn't have money to buy more?: never true Highest level of school completed/degree received: Associate degree: occupational, technical, vocational program Smoking Status: Former smoker Do you use any of these nicotine containing products: None How often do you have a drink containing alcohol: never AUDIT-C Alcohol total score: 0 Non-prescribed substance use: denies use Caffeine: Yes (4 cups a day) How often does anyone, including family, friends and others, physically hurt you: never How often does anyone, including family, friends and others, insult or talk down to you: never How often does anyone, including family, friends and others, threaten you with harm: never How often does anyone, including family, friends and others, scream or curse at you: never service: No Health Related Social Needs: Inadequate housing (Z59.1) Meds Home Medications and Allergies Home Medications ?Medication ?Instructions ?Recorded ?Confirmed ?Type albuterol sulfate 90 mcg/actuation 2 puff inhalation Q4H PRN wheezing 11/04/24 11/04/24 History aerosol inhaler alendronate 70 mg tablet 70 mg PO QWEEK 11/04/24 11/04/24 History fluoxetine 10 mg capsule 10 mg PO DAILY 11/04/24 11/04/24 History fluticasone fur. 100 mcg-umeclid 1 ea inhalation DAILY 11/04/24 11/04/24 History 62.5 mcg-vilant 25 mcg inhalat.powder (Trelegy Ellipta) latanoprost 0.005 % eye drops 1 drp ophthalmic (eye) HS 11/04/24 11/04/24 History lisinopril 10 mg tablet 10 mg PO DAILY 11/04/24 11/04/24 History rosuvastatin 10 mg tablet 10 mg PO QPM 11/04/24 11/04/24 History Allergies Allergy/AdvReac Type Severity Reaction Status Date / Time No Known Drug Allergies Allergy Verified 11/04/24 08:12 Exam Const: Vital Signs, click to edit/add: Vital Signs - 24 hr 11/04/24 08:06 11/04/24 11:19 Temperature 97.9 F 98.9 F Pulse Rate [Left P ulse Oximeter] 105 H Pulse Rate [Left R adial] 90 Respiratory Rate 18 20 Blood Pressure [Le ft Arm] 127/85 Blood Pressure [Ri ght Upper Arm] 95/65 Pulse Oximetry 97 98 Oxygen Delivery Me thod Room Air Room Air Hospitalist - H&P: Result Labs Labs: Short CBC 11/04/24 Range/Units 08:25 WBC 5.68 (4.50-11.00) K/uL Hgb 14.6 (12.0-16.0) gm/dL Hct 44.9 (33.0-51.0) % Plt Count 264 (140-440) K/uL BMP 11/04/24 08:25 Sodium 131 L Potassium 4.4 Chloride 95 L Carbon Dioxide 25 BUN 36 H Creatinine 1.1 Glucose 115 Calcium 9.7 Liver Function 11/04/24 Range/Units 08:25 Total Bilirubin 0.7 (0.1-1.5) mg/dL Direct Bilirubin 0.2 (0.0-0.5) mg/dL AST 34 (12-35) U/L ALT 20 (4-35) U/L Alkaline Phosphatase 96 (40-150) U/L Albumin 4.5 (3.3-5.0) g/dL Urine 11/04/24 Range/Units 09:25 Urine Color Yellow (Yellow) Urine Appearance Clear (Clear) Urine pH 6.5 (5.0-8.5) Ur Specific [place] 1.015 (1.000-1.030) Urine Protein 1+ A (Negative) Urine Glucose (UA) Negative (Negative)
[2024-11-04] MEDS: PANTOPRAZOLE SODIUM 40 MG INJ IVP (12:40)
[2024-11-04] MEDS: LACTATED RINGERS 1000 ML 1,000 ML 500 ML IV (12:44)
--- NOTE | 2024-11-04 13:22 | PM.GSCN ---
History of Present Illness Consult details Date Seen: 11/04/24 Consult date: 11/04/24 Narrative: 68-year-old female with history of COPD and coronary artery disease presented to emergency room with abdominal pain and I was asked by Dr. Rincon to see her in consultation. Patient states that her pain started on . The pain was periumbilical and diffuse. The pain was dull and sharp and was not improving. Patient has a history of hysterectomy and bilateral salpingo-oophorectomy. She had 5-7 small bowel obstructions in the past with the last small bowel obstruction being 1 year ago. Her small bowel obstructions were treated conservatively and she improved. This time she was not passing gas. She had vomiting on and also today will brushing teeth. Because her pain was not improving, patient decided to come to the emergency room. I personally reviewed patient's workup in the emergency room. Patient was found to have mildly elevated CRP of 4.4. Her WBC was normal. Abdominal CT was obtained that showed dilated loops of small intestine with a transition point in the pelvis. Radiologist was concerned for possible internal hernia based on the appearance of the CT. Patient's last colonoscopy was in 2013. She does have a history of polyps. She is overdue for her colonoscopy. She came into the outpatient center prepped for colonoscopy and was turned down by Anesthesiology due to her medical history. She was told that she needed to have her colonoscopy done at the hospital. Review of Systems Narrative: General: no fevers HENT: no problems swallowing CV: no shortness of breath Resp: no cough GI: No nausea, vomiting, abdominal pain : no dysuria, no increased urinary frequency, no hematuria Skin: no new rashes Musculoskeletal: no back pain Neuro: no muscle weakness Psyche: no depression, no anxiety PFSH PFSH Medical History Pulmonary cachexia due to COPD ?R64 - Cachexia (ICD-10) ?J44.9 - Chronic obstructive pulmonary disease, unspecified (ICD-10) Alpha 1-antitrypsin PiMS phenotype ?Z14.8 - Genetic carrier of other disease (ICD-10) Former heavy tobacco smoker ?Z87.891 - Personal history of nicotine dependence (ICD-10) Stage 4 very severe COPD by GOLD classification ?J44.9 - Chronic obstructive pulmonary disease, unspecified (ICD-10) CAD (coronary artery disease) ?I25.10 - Atherosclerotic heart disease of [place] coronary artery without angina pectoris (ICD-10) Depression ?F32.A - Depression, unspecified (ICD-10) Osteoporosis ?M81.0 - Age-related osteoporosis without current pathological fracture (ICD-10) Hyperlipidemia ?E78.5 - Hyperlipidemia, unspecified (ICD-10) Sarcopenia ?M62.84 - Sarcopenia (ICD-10) Surgical History S/P BOWEN-BSO ?Z90.710 - Acquired absence of both cervix and uterus (ICD-10) ?Z90.722 - Acquired absence of ovaries, bilateral (ICD-10) ?Z90.79 - Acquired absence of other genital organ(s) (ICD-10) History of back surgery ?Z98.890 - Other specified postprocedural states (ICD-10) H/O cone biopsy of cervix ?Z98.890 - Other specified postprocedural states (ICD-10) Social History What is your current living situation?: I presently have a place to live Problems where you live: mold and water leaks Problems where you live details: my son needs to get working on some things In the past 12 months, utilities in danger of being shut off: no In past 12 months, lack of transportation kept you from medical appts, meetings, work, or getting things needed for daily living: no In the past 12 mos, have been you worried that your food would run out before you had money to buy more?: never true In the past 12 mos, the food you bought just didn't last and you didn't have money to buy more?: never true Highest level of school completed/degree received: Associate degree: occupational, technical, vocational program Smoking Status: Former smoker Do you use any of these nicotine containing products: None How often do you have a drink containing alcohol: never AUDIT-C Alcohol total score: 0 Non-prescribed substance use: denies use Caffeine: Yes (4 cups a day) How often does anyone, including family, friends and others, physically hurt you: never How often does anyone, including family, friends and others, insult or talk down to you: never How often does anyone, including family, friends and others, threaten you with harm: never How often does anyone, including family, friends and others, scream or curse at you: never service: No Health Related Social Needs: Inadequate housing (Z59.1) Meds Home Medications and Allergies Home Medications ?Medication ?Instructions ?Recorded ?Confirmed ?Type albuterol sulfate 90 mcg/actuation 2 puff inhalation Q4H PRN wheezing 11/04/24 11/04/24 History aerosol inhaler alendronate 70 mg tablet 70 mg PO 11/04/24 History fluoxetine 10 mg capsule 10 mg PO DAILY 11/04/24 11/04/24 History fluticasone fur. 100 mcg-umeclid 1 ea inhalation DAILY 11/04/24 11/04/24 History 62.5 mcg-vilant 25 mcg inhalat.powder (Trelegy Ellipta) lisinopril 10 mg tablet 10 mg PO DAILY 11/04/24 11/04/24 History rosuvastatin 10 mg tablet 10 mg PO QPM 11/04/24 11/04/24 History Allergies Allergy/AdvReac Type Severity Reaction Status Date / Time No Known Drug Allergies Allergy Verified 11/04/24 08:12 Exam Narrative: Exam Narrative: General appearance: Alert, cooperative, and in no distress Pulmonary: Chest symmetric, lungs clear bilaterally Cardiovascular Heart: Regular rate and rhythm, S1, S2, no murmurs/rubs/gallops Gastrointestinal Abdominal: soft, distended, tender to palpation in the right upper quadrant and right lower quadrant, not tender to percussion. Skin: Normal skin color, texture, and turgor. No rashes or lesions. Psychiatric: Alert, cooperative, normal affect. Const: Vital Signs, click to edit/add: Vital Signs - 24 hr 11/04/24 08:06 11/04/24 10:30 11/04/24 11:00 Temperature 97.9 F Pulse Rate Pulse Rate [Left P ulse Oximeter] 105 H 89 88 Pulse Rate [Left R adial] Respiratory Rate 18 18 18 Blood Pressure [Le ft Arm] Blood Pressure [Ri ght Upper Arm] 95/65 109/92 H 118/73 Pulse Oximetry 97 94 96 Oxygen Delivery Me thod Room Air Room Air Room Air 11/04/24 11:19 11/04/24 12:20 11/04/24 12:20 Temperature 98.9 F Pulse Rate Pulse Rate [Left P ulse Oximeter] Pulse Rate [Left R adial] 90 Respiratory Rate 20 Blood Pressure [Le ft Arm] 127/85 Blood Pressure [Ri ght Upper Arm] Pulse Oximetry 98 98 98 Oxygen Delivery Me thod Room Air Room Air 11/04/24 12:25 11/04/24 12:27 Temperature 99.4 F Pulse Rate 84 Pulse Rate [Left P ulse Oximeter] Pulse Rate [Left R adial] 79 Respiratory Rate 14 Blood Pressure [Le ft Arm] 120/77 Blood Pressure [Ri ght Upper Arm] Pulse Oximetry 96 Oxygen Delivery Me thod Room Air Results Labs Labs: Abnormal lab results 11/04/24 11/04/24 Range/Units 08:25 09:25 Neut % (Auto) 74.9 H (42.0-72.0) % Lymph % (Auto) 11.6 L (20-44) % [place] % (Auto) 12.1 H (0.0-11.0) % Lymph # (Auto) 0.70 L (0.90-2.90) K/uL Sodium 131 L (135-149) mmol/L Chloride 95 L (96-114) mmol/L BUN 36 H (7-30) mg/dL Lactate 2.2 H (0.5-1.9) mmol/L C-Reactive Protein 4.4 H (0.5-1.0) mg/dL NT-Pro-B Natriuret Pep 451 H (See Note) pg/mL Urine Protein 1+ A (Negative) Urine Ketones 1+ A (Negative) Urine Bilirubin 1+ A (Negative) Diabetes panel 11/04/24 Range/Units 08:25 Sodium 131 L (135-149) mmol/L Potassium 4.4 (3.6-5.1) mmol/L Chloride 95 L (96-114) mmol/L Carbon Dioxide 25 (20-32) mmol/L BUN 36 H (7-30) mg/dL Creatinine 1.1 (0.5-1.5) mg/dL Glucose 115 (60-115) mg/dL Calcium 9.7 (8.4-10.6) mg/dL AST 34 (12-35) U/L ALT 20 (4-35) U/L Alkaline Phosphatase 96 (40-150) U/L Total Protein 7.5 (6.0-8.3) g/dL Albumin 4.5 (3.3-5.0) g/dL Calcium panel 11/04/24 Range/Units 08:25 Calcium 9.7 (8.4-10.6) mg/dL Albumin 4.5 (3.3-5.0) g/dL Pituitary panel 11/04/24 Range/Units 08:25 Sodium 131 L (135-149) mmol/L Potassium 4.4 (3.6-5.1) mmol/L Chloride 95 L (96-114) mmol/L Carbon Dioxide 25 (20-32) mmol/L BUN 36 H (7-30) mg/dL Creatinine 1.1 (0.5-1.5) mg/dL Glucose 115 (60-115) mg/dL Calcium 9.7 (8.4-10.6) mg/dL Adrenal panel 11/04/24 Range/Units 08:25 Sodium 131 L (135-149) mmol/L Potassium 4.4 (3.6-5.1) mmol/L Chloride 95 L (96-114) mmol/L Carbon Dioxide 25 (20-32) mmol/L BUN 36 H (7-30) mg/dL Creatinine 1.1 (0.5-1.5) mg/dL Glucose 115 (60-115) mg/dL Calcium 9.7 (8.4-10.6) mg/dL Total Bilirubin 0.7 (0.1-1.5) mg/dL AST 34 (12-35) U/L ALT 20 (4-35) U/L Alkaline Phosphatase 96 (40-150) U/L Total Protein 7.5 (6.0-8.3) g/dL Albumin 4.5 (3.3-5.0) g/dL All other labs normal. Progress Note:A&P Assessment and plan (1) Small bowel obstruction: Status: Acute Assessment and Plan: 68-year-old female with COPD and coronary artery disease admitted to the hospital with small-bowel obstruction concerning for an internal hernia. I discussed with the patient her laboratory and CT findings. Her abdominal CT shows dilated loops of small intestine with a concern of possible internal hernia. Patient had multiple previous small bowel obstructions that resolved with conservative treatment. I recommended to proceed with surgery due to potential for internal hernia. However, given patient's history of severe COPD there is a concern from anesthesia that patient would not be able to be extubated postoperatively. Patient is not on oxygen however, she is emaciated with BMI of 14. she is on inhalers and gets very tired in the evening and uses a rescue inhaler. Patient is stable hemodynamically. We will work on transferring her to a tertiary care center with ICU availability.
[2024-11-04] MEDS: LACTATED RINGERS 1000 ML 1,000 ML 75 ML IV (14:41)
--- NOTE | 2024-11-04 15:04 | PC.NURSE ---
Report given to Renay at [facility].
--- NOTE | 2024-11-04 15:59 | PC.NURSE ---
Transfer: Patient pleasant and cooperative. Patient vitally stable, lungs clear, BS WNL, IV running LR at [facility] by EMS. Patient rates abdominal pain 3/10 with no activity. Abdomen is firm and distended but active. Patient urinated 350, and 2mg of morphine was given for transport. Patient signed belongings sheet and authorization for transfer. Patient left the floor by EMS to [facility] at 1555.
== END 2024-11-04 15:55 | disposition short-term general hospital (02) | DRG 394 ==
LOC: ED 10:14 → SS 11:05 → MEDSURG 11:10 → SS 11:56 → MEDSURG 12:45
PROVIDERS: Admitting Provider Surgery; Emergency Provider Family Medicine; PCP Physician Assistant; Visit Provider Surgery
DX: K46.0 Unspecified abdominal hernia with obstruction, without gangrene (principal); E87.1 Hypo-osmolality and hyponatremia; Z68.1 Body mass index [BMI] 19.9 or less, adult; E88.A Wasting disease (syndrome) due to underlying condition; J44.9 Chronic obstructive pulmonary disease, unspecified; M62.84 Sarcopenia; R91.1 Solitary pulmonary nodule; I10 Essential (primary) hypertension; E88.01 Alpha-1-antitrypsin deficiency; I25.10 Atherosclerotic heart disease of native coronary artery without angina pectoris; G25.0 Essential tremor; Z87.891 Personal history of nicotine dependence
CPT/HCPCS: 36415; 74177; 80048; 80076; 81001; 82150; 83605; 83880; 85025; 86140; 87086; 93005; 99285; A9270; J2270; J2470; J7030; J7120; Q9967

== ENCOUNTER 2024-11-04 15:43 | Outpatient (CLI) | payer MEDICARE, SELFPAY | END 2024-11-04 15:44 | disposition home or self-care (01) | LOC: AMB 11-22 09:47 | PROVIDERS: PCP Physician Assistant; Visit Provider Family Medicine | DX: K56.609 Unspecified intestinal obstruction, unspecified as to partial versus complete obstruction (principal); J44.9 Chronic obstructive pulmonary disease, unspecified | CPT/HCPCS: A0425; A0427 ==